=== PATIENT | female | born 1935 | race Caucasian/White ===

== ENCOUNTER 2016-12-31 09:18 | Inpatient (IN) ==
[2016-12-31 10:24] LABS: MANUAL DIFF NEEDED? NO
[2016-12-31 10:29] LABS: BASO% 0.1 % (0.0-0.8); EOS# 0.04 X1000 (0.0-0.7); EOS% 0.5 % (0.0-10.0); HEMATOCRIT 38.9 % (37.0-47.0); HEMOGLOBIN 12.5 g/dL (12.0-16.0); LYMPH# 0.78 X1000 (1.2-3.4); MCH 30.2 PG (27-31); MCHC 32.1 g/dL (33-37); MONO# 0.58 X1000 (0.11-0.59); MONO% 6.7 % (1.7-9.3); MPV 8.7 FL (7.4-10.4); NEUT% 83.7 % (42.2-75.2); PLT 609 X1000 (130-400); RBC 4.14 XMIL (4.2-5.4)
[2016-12-31 10:34] LABS: INR 1.28; PROTIME 13.6 Seconds (9.2-11.7)
[2016-12-31 10:58] LABS: CALCIUM 8.8 mg/dL (8.8-10.2); POTASSIUM 4.5 mmol/L (3.5-5.1); TOTAL BILIRUBIN 0.38 mg/dL (0.20-1.00); TOTAL PROTEIN 6.2 g/dL (6.3-8.3)
--- NOTE | 2016-12-31 11:04 | EKG Report ---
Test Performed on : 12/31/2016 10:09:20 AM Test Reason : PANCREATIC CA Blood Pressure : / mmHG Vent. Rate : 084 BPM Atrial Rate : 083 BPM P-R Int : 000 ms QRS Dur : 080 ms QT Int : 340 ms P-R-T Axes : 000 008 -67 degrees QTc Int : 401 ms Atrial fibrillation. Nonspecific T wave abnormality Abnormal ECG When compared with ECG of 21-NOV-2015 09:11, Vent. rate has decreased BY 46 BPM Incomplete right bundle branch block is no longer present Confirmed by Aleksey CHEN, Du Patel ([id number]) on 01/01/2017 8:42:06 AM
--- NOTE | 2016-12-31 11:46 | Diag Imaging Result Doc PS360 ---
EXAM: CHEST-2 VIEWS HISTORY: PANCREATIC CA TECHNIQUE: PA and lateral chest COMMENT: there are bilateral pleural effusions. This is improved slightly particularly with regard to the left side since 11/25/2015. There is COPD. There are granulomatous calcifications in the right lower lobe and hilum. There is a large hiatal hernia. IMPRESSION: Improved pleural effusions. COPD. Hiatal hernia. Electronically signed by Matthew Castillo 12/31/2016 11:44 AM
--- NOTE | 2016-12-31 13:22 | Diag Imaging Result Doc PS360 ---
EXAM: CT THORAX W/O CONTRAST HISTORY: PANCREATIC CA TECHNIQUE: CT of the chest without contrast with dose reduction (clarity.) COMMENT: There are no previous studies available for comparison. There is some pleural fibrosis in the right apex. There is some bronchiectasis and fibrosis in the right middle lobe medially. There is fibrosis versus platelike atelectasis in the lower right lower lobe. Some small tree-in-bud but type opacities are also present in the posterior right lower lobe inferiorly. There is at least one large calcified granuloma in the right lower lobe. There is pleural thickening and loculated effusion in the right costophrenic sulcus. There is a left pleural effusion as well. There are coronary calcifications. There is a large hiatal hernia. There is ascites. There is a 13 mm right paratracheal node. There are spondylotic changes in the thoracic spine. IMPRESSION: Pleural effusions and ascites as described. Hiatal hernia. Minimal atelectasis and/or fibrosis as described with right middle lobe bronchiectasis. Electronically signed by Matthew Castillo 12/31/2016 1:19 PM
[2016-12-31 14:00] LABS: URINE MICRO REVIEW NEEDED? NO; URINE SOURCE VOIDED
[2016-12-31 14:04] LABS: BILIRUBIN URINE NEGATIVE (NEGATIVE); BLOOD URINE NEGATIVE (NEGATIVE); COLOR YELLOW; GLUCOSE URINE NEGATIVE (NEGATIVE); LEUKOCYTES URINE NEGATIVE (NEGATIVE); NITRITE URINE NEGATIVE (NEGATIVE); PROTEIN URINE NEGATIVE (NEGATIVE); SP GRAVITY URINE 1.007; TURBIDITY URINE CLEAR (CLEAR); UROBILINOGEN URINE NORMAL (NORMAL)
[2016-12-31 14:05] LABS: UR EPITHELIAL CELLS <10 /HPF (<10); URINE BACTERIA 4+ /HPF; URINE RBC <10 /HPF (<10); URINE WBC <10 /HPF (<10)
[2016-12-31] MEDS: LOVENOX SUBQ SCH (22:51)
[2017-01-01] MEDS ORDERED: DUONEB (A & A) INH PRN (03:04)
[2017-01-01] MEDS ORDERED: OXY IR PO PRN (03:04)
[2017-01-01] MEDS: SYNTHROID PO SCH (06:37)
[2017-01-01] MEDS: FERROUS SULFATE PO SCH ×2 (08:04→14:42)
[2017-01-01] MEDS: CARDIZEM CD PO SCH ×2 (08:05→14:41)
[2017-01-01] MEDS: GLUCOTROL XL PO SCH ×2 (08:05→18:39)
[2017-01-01] MEDS: LASIX PO SCH ×2 (08:06→14:42)
[2017-01-01] MEDS: LANOXIN PO SCH ×2 (08:06→14:43)
[2017-01-01] MEDS: PRILOSEC PO SCH ×2 (08:06→21:51)
[2017-01-01] MEDS: VITAMIN B-12 SL SCH ×2 (08:07→14:41)
--- NOTE | 2017-01-01 10:56 | CONSULTATION ---
DATE OF CONSULTATION: 12/31/2016 REASON FOR CONSULTATION: Pancreatic mass. HISTORY OF PRESENT ILLNESS: This is an 81-year-old, white female, who reports a known pancreatic mass for over 4-5 years. She has been followed in [place]. It was felt per patient and her son who was at the bedside that she was not a surgical candidate. The patient has reported recent nausea and vomiting. She has reported weight loss of about 25 pounds over the last 3-4 months. She has a poor appetite. She currently lives alone, but her son helps her who is at the bedside today. She has been following with Dr. Perdue, her primary care physician. Patient denies any visible blood in the stool or black stools. She reports having a colonoscopy by Dr. Desai in [place] over 10 years ago. She has had noted abdominal distention over the last month or so which has become worse. PAST MEDICAL HISTORY: Hypertension, history of atrial fibrillation, COPD, diabetes type 2, renal disease, hypothyroidism. She has had history of pancreatitis. PAST SURGICAL HISTORY: Cataract surgery. Laparoscopic cholecystectomy. ALLERGIES: No known drug allergies. HOME MEDICATIONS: 1. Albuterol as needed. 2. Iron 325 daily. 3. Docusate sodium 200 mg every night. 4. Cardizem CD 240 mg daily. 5. Lanoxin 125 mcg daily. 6. Vitamin B12 2500 mcg sublingual daily. 7. Pravachol 40 mg daily. 8. Oxycodone 5 mg every 3 hours as needed. 9. Prilosec 20 mg twice daily. 10. Levothyroxine 50 mcg daily. 11. Glipizide 5 mg daily. 12. Lasix 80 mg daily. 13. Coumadin 2.5 mg every night. REVIEW OF SYSTEMS: Per HPI. PHYSICAL EXAMINATION: Vital Signs: Temperature 98.2 degrees, pulse 94, respirations 18, blood pressure 126/75. General: Patient is awake and alert, in no acute distress. HEENT: Normocephalic, atraumatic. Pupils equal, round, reactive to light. Sclerae are nonicteric. Cardiovascular: History of atrial fibrillation. Respiratory: Lung sounds essentially clear. Abdomen is distended with ascites noted. Nontender with palpation. Lower extremities with some mild edema noted. LABORATORY RESULTS: Hematology: White count 8.63, hemoglobin 12.5, hematocrit 38.9, MCV 94.0, platelet count 609,000. Coagulation: ProTime 13.6, INR 1.28, PTT 32.0. Chemistry: Sodium 137, potassium 4.5, chloride 98, CO2 of 28. BUN 27, creatinine 1.9, glucose 139, total bilirubin 0.38. AST 15, ALT 18. Alkaline phosphatase 96, total protein 6.2, albumin 3.0. CEA 2.0. Chest CT scan show pleural effusions and ascites, hiatal hernia, minimal atelectasis with right middle lobe bronchiectasis. ASSESSMENT AND PLAN: 1. Pancreatic mass. 2. Ascites. 3. Normal liver function tests. 4. Nausea, vomiting. 5. Weight loss. PLAN: Continue supportive care. Recommend paracentesis for diagnostic and therapeutic purposes. Her bilirubin and liver tests are normal. Do not recommend ERCP at this time. We will continue to follow and further plans will be made as needed. Patient has been seen by Dr. Vinson. Thank you for this consultation. Dictated by COMPA Atkinson for Renny Vinson MD cc: COMPA Potter MD Hugh C. Nabers, MD [facility]ENTERColby
--- NOTE | 2017-01-01 11:21 | Diag Imaging Result Doc PS360 ---
US PARACENTESIS - 01/01/2017 INDICATION: ascites with pancreatic mass COMPARISON: None FINDINGS: The risks and benefits of the procedure were discussed with the patient. All questions were answered. Written and verbal consent was obtained. Ultrasound scanning demonstrated ascites. Overlying skin was prepped and draped in sterile fashion. Local anesthesia was achieved with injection of 10 cc 1% lidocaine. The paracentesis catheter was advanced until the return of ascites fluid. 5 L mildly cloudy yellowish-brown fluid was aspirated. A sample was sent for laboratory analysis. The catheter was withdrawn intact. There were no known complications. IMPRESSION: Technically successful ultrasound-guided paracentesis with no known complications. Electronically signed by Francisco Doyle 01/01/2017 11:18 AM
--- NOTE | 2017-01-01 11:56 | CONSULTATION ---
DATE OF CONSULTATION: 01/01/2017 REASON FOR CONSULT: Pancreatic mass. HISTORY OF PRESENT ILLNESS: This patient, who is a pleasant, female, who sees Dr. Perdue as her primary care, began having increasing abdominal pain and abdominal distention over the past 2 weeks. She apparently has had a known pancreatic mass that has been there for about 4 or 5 years but has not been a surgical candidate. She notified Dr. Perdue of her increasing abdominal pain and abdominal distention. A CT of the abdomen and pelvis was performed which showed a 5 x 5.5 cm hypodense pancreatic head mass that is highly suspicious for malignancy. There was also mild to moderate abdominal ascites, a very small right pleural effusion, and right basilar and pleural parenchymal thickening. She was admitted to the hospital under Dr. Falcon for a paracentesis. A CA-19-9 has been obtained. It is 21. CEA is 2. A CT of the chest has also been performed and it shows a 13 mm right paratracheal node, large hiatal hernia , and pleural effusions with minimal atelectasis in the right middle lobe. EKG was performed and it showed atrial fibrillation with a heart rate of 84 beats per minute. The patient is apparently on Coumadin for her known atrial fibrillation. REVIEW OF SYSTEMS: Negative unless indicated in the HPI. PAST MEDICAL HISTORY: Significant for a known pancreatic mass that she has had for the past 4 to 5 years, renal insufficiency, atrial fibrillation - on Coumadin, COPD, diabetes mellitus type 2. ALLERGIES: No known allergies. HOME MEDICATIONS: Pravachol, oxycodone, Prilosec, Synthroid, glipizide, Lasix, Coumadin, iron, albuterol, and Cardizem. PHYSICAL EXAMINATION: Vital Signs: Stable. General: This is an elderly, female in no acute distress. HEENT: Head is normocephalic, atraumatic. Pupils equal, round , symmetric. Cardiology: S1-S2 audible on auscultation with no heaves, lifts, or thrills. Pulmonary: Breath sounds clear to auscultation. Normal respiratory effort. GI: Abdomen is soft. Positive bowel sounds in all 4 quadrants. It is distended with ascites noted. Extremities: Generalized edema to the bilateral lower extremities. Moves all extremities. She does walk with the assistance of a cane. Neurologic: Alert and orient x3. Psychiatric: Appropriate to the situation. DIAGNOSTIC DATA: CT scan is as above. WBC is 8.63, hemoglobin 12.5, hematocrit 38.9, platelet count is 609,000. Sodium is 137, potassium 4.5, BUN is 27, creatinine is 1.9. CA 19-9 is 21, CEA 2. ASSESSMENT AND PLAN: 1. Pancreatic head mass. She has apparently had a known mass for 4 or [address] of the abdomen and pelvis on 12/18/2016 is not compared with another one. Plan to follow along and plan for PET scan as an outpatient She apparently was not a surgery candidate. Patient's CA- 19-9 is normal, as is her CEA. 2. Ascites, for paracentesis. 3. Abdominal pain with plans as above. 4. Atrial fibrillation. She has been on Coumadin in the past, also Cardizem and digoxin. 5. Deep vein thrombosis prophylaxis, on Lovenox. Dictated by COMPA Story for Jules Levin MD cc: COMPA Story MD Hugh C. Nabers, MD Nick Gillespie, MD MTDD
--- NOTE | 2017-01-01 12:25 | PROGRESS NOTE ---
DATE: 01/01/2017 SUBJECTIVE: The patient states she is feeling better. She had a paracentesis today for therapeutic and diagnostic purposes. 5 L of fluid was removed. She states her abdominal distention is better. We are awaiting lab results from the fluid analysis. OBJECTIVE: Vital Signs: Temperature 97.6 degrees, pulse 75, respirations 16, blood pressure 112/62. General: The patient is awake and alert in no acute distress. Respiratory: Lung sounds essentially clear. Abdomen is softer and less distended. Nontender with palpation. She has a Band-Aid in place to the right quadrant from her paracentesis. LABORATORY RESULTS: Hematology from 12/31/2016: WBC 8.63, hemoglobin 12.5, hematocrit 38.9, MCV 94.0, platelet 609,000. Chemistry: Sodium 137, potassium 4.5, chloride 98, CO2 of 28, BUN 27, creatinine 1.9, glucose 139. Total bilirubin 0.38. AST 15. ALT 18. Alkaline phosphatase 96. CEA 2.0. CEA 19-9 of 21 ASSESSMENT AND PLAN: 1. Pancreatic mass. 2. Ascites. 3. Abdominal distention has improved after paracentesis. 5 L was removed. 4. Recent weight loss and appetite loss. PLAN: We will await diagnostic results from paracentesis. Dr. Levin has seen the patient. Further plans will be made according to findings. Patient voices understanding. Family is at the bedside. Dictated by COMPA Atkinson for Renny Vinson MD cc: COMPA Potter MD Hugh C. Nabers, MD
[2017-01-01 14:27] LABS: TOTAL PROT BODY FLUID 3.6 g/dL
[2017-01-01] MEDS: D5 1/2 NS + KCL 20 MEQ 1,000 ML IV SCH (14:41)
[2017-01-01 15:03] LABS: DIFF NEEDED? YES; POLYS 21 %; WBC BF 510 /cumm
[2017-01-01 15:04] LABS: MONOS 79 %
[2017-01-01] MEDS: COLACE PO SCH (21:51)
[2017-01-01] MEDS: PRAVACHOL PO SCH (21:51)
[2017-01-01] MEDS: LOVENOX SUBQ SCH (21:58)
[2017-01-02] MEDS: D5 1/2 NS + KCL 20 MEQ 1,000 ML IV SCH ×3 (04:58→22:10)
[2017-01-02 05:43] LABS: MANUAL DIFF NEEDED? NO
[2017-01-02 05:58] LABS: BASO% 0.1 % (0.0-0.8); EOS# 0.13 X1000 (0.0-0.7); EOS% 1.7 % (0.0-10.0); IMM GRAN# 0.02 X1000 (0.0-0.04); IMM GRAN% 0.3 % (0.0-0.5); LYMPH# 0.72 X1000 (1.2-3.4); LYMPH% 9.4 % (20.5-51.1); MCH 29.6 PG (27-31); MCHC 31.4 g/dL (33-37); MCV 94.3 FL (81-99); MONO% 10.5 % (1.7-9.3); MPV 9.2 FL (7.4-10.4); PLT 429 X1000 (130-400); RBC 3.71 XMIL (4.2-5.4)
[2017-01-02 06:10] LABS: CALCIUM 7.7 mg/dL (8.8-10.2); POTASSIUM 4.4 mmol/L (3.5-5.1)
[2017-01-02] MEDS: SYNTHROID PO SCH (06:23)
[2017-01-02] MEDS: VITAMIN B-12 SL SCH (09:41)
[2017-01-02] MEDS: LASIX PO SCH (09:41)
[2017-01-02] MEDS: FERROUS SULFATE PO SCH (09:41)
[2017-01-02] MEDS: CARDIZEM CD PO SCH (09:41)
[2017-01-02] MEDS: PRILOSEC PO SCH ×2 (09:41→22:11)
[2017-01-02] MEDS: GLUCOTROL XL PO SCH (09:41)
[2017-01-02] MEDS: LANOXIN PO SCH (09:42)
--- NOTE | 2017-01-02 14:17 | PROGRESS NOTE ---
DATE: 01/02/2017 SUBJECTIVE: Patient states she is feeling pretty good. She did report some shortness of breath when walking to the bathroom. No reported abdominal pain. She did report some heartburn during the night. She reported having 2 normal bowel movements today. No complaints of chest pain or palpitations. OBJECTIVE: Vital Signs: Temperature 97.7 degrees, pulse 69, respirations 18, blood pressure 122/60. General: Patient is awake and alert, no acute distress. HEENT: Normocephalic, atraumatic. Pupils equal, round, reactive to light. Sclerae nonicteric. Cardiovascular: Regular rate and rhythm. S1, S2. Respiratory: Lung sounds essentially clear bilaterally. Abdomen: With some mild ascites but better after paracentesis. She had 5 L removed yesterday. Mild tenderness. Positive bowel sounds. Neurological: She is awake, alert, and oriented to person, place, and time. DIAGNOSTIC RESULTS: Laboratory: Hematology: White count 7.65, hemoglobin 11, hematocrit 35.5, MCV 94.3, platelets 429,000. Chemistry: Sodium 139, potassium 4.4, chloride 101, CO2 30, BUN 21, creatinine 1.6, glucose 153. Diagnostic results of ascitic fluid showed SAAG of 1.0. We are awaiting cytology. ASSESSMENT AND PLAN: 1. Pancreatic mass. 2. Ascites. 3. Abdominal pain. 4. Recent weight loss and appetite loss. PLAN: Continue supportive care. Continue symptomatic treatment. She had 5 L of fluid removed yesterday from her paracentesis. We are awaiting cytology report. Continue to follow with Dr. Falcon and Dr. Levin. GI will be available as needed. Dictated by COMPA Atkinson for Renny Vinson MD cc: COMPA Potter MD Hugh C. Nabers, MD
[2017-01-02] MEDS ORDERED: GOLYTELY PO ONE ×2 (16:30→17:00)
[2017-01-02] MEDS: PRAVACHOL PO SCH (22:11)
[2017-01-02] MEDS: COLACE PO SCH (22:11)
[2017-01-03] MEDS: D5 1/2 NS + KCL 20 MEQ 1,000 ML IV SCH ×3 (05:57→22:10)
[2017-01-03 06:11] LABS: MANUAL DIFF NEEDED? NO
[2017-01-03 06:20] LABS: BASO% 0.1 % (0.0-0.8); EOS# 0.15 X1000 (0.0-0.7); EOS% 2.2 % (0.0-10.0); HEMATOCRIT 33.2 % (37.0-47.0); HEMOGLOBIN 10.6 g/dL (12.0-16.0); IMM GRAN# 0.03 X1000 (0.0-0.04); IMM GRAN% 0.4 % (0.0-0.5); LYMPH# 0.74 X1000 (1.2-3.4); LYMPH% 10.8 % (20.5-51.1); MCH 29.9 PG (27-31); MCHC 31.9 g/dL (33-37); MCV 93.5 FL (81-99); MONO# 0.67 X1000 (0.11-0.59); MONO% 9.8 % (1.7-9.3); MPV 9.3 FL (7.4-10.4); NEUT% 76.7 % (42.2-75.2); PLT 401 X1000 (130-400); RBC 3.55 XMIL (4.2-5.4)
[2017-01-03 06:35] LABS: ALBUMIN 2.1 g/dL (3.5-5.0); CALCIUM 7.3 mg/dL (8.8-10.2); POTASSIUM 4.6 mmol/L (3.5-5.1)
[2017-01-03] MEDS: SYNTHROID PO SCH (07:48)
[2017-01-03] MEDS: FERROUS SULFATE PO SCH (09:57)
[2017-01-03] MEDS ORDERED: DIPRIVAN 1% 500 MG/50 ML BOTTLE ONE (12:03)
[2017-01-03] MEDS ORDERED: EPINEPHRINE SYRINGE ONE ×2 (14:06→14:29)
[2017-01-03] MEDS ORDERED: XYLOCAINE-MPF 2% ONE (14:08)
[2017-01-03] MEDS: PRILOSEC PO SCH ×2 (14:21→22:10)
[2017-01-03] MEDS: LANOXIN PO SCH (14:22)
[2017-01-03] MEDS: VITAMIN B-12 SL SCH (14:22)
[2017-01-03] MEDS: CARDIZEM CD PO SCH (14:22)
[2017-01-03] MEDS: GLUCOTROL XL PO SCH (14:22)
[2017-01-03] MEDS: LASIX PO SCH (14:30)
--- NOTE | 2017-01-03 14:47 | OPERATIVE NOTE ---
PROCEDURE DATE: 01/03/2017 PROCEDURE: 1. Esophagogastroduodenoscopy. 2. Colonoscopy and polypectomy. MEDICATION USED: MAC as per Anesthesia. SCOPED USED: Olympus GIF HQ-190 and CF HQ-190. PREOPERATIVE DIAGNOSIS: Malignant ascites unknown primary. POSTOPERATIVE DIAGNOSES: 1. Hiatal hernia. 2. Colon polyps. 3. Diverticulosis. 4. No malignancy found. HISTORY: This is an 81-year-old, white female admitted to hospital with me once ascites and cytology on paracentesis showed evidence adenocarcinoma. EGD and colonoscopy was done to check for primary. DESCRIPTION OF PROCEDURE: Informed consent was obtained from the patient. The procedure, risks, benefits, alternatives were explained in layman's terms. She understood. All the pertinent questions were answered. Patient was brought to the endoscopy unit and was premedicated as per Anesthesia. After adequate sedation, while she was lying in left lateral position, the gastroscope was introduced into the posterior pharynx and advanced under direct vision into the esophagus. Esophagus in the upper and middle part was normal. Distal esophagus showed a 5 cm long hiatal hernia. The GE junction was noted at about 35 cm and the diaphragmatic hiatus was about 40 cm from incisors. I did not see any webs, rings, varices. The scope was then passed through the esophagus into the stomach. Stomach was examined both in straight and retroflexed view, which revealed no pathology. Scope was then passed through the normal pylorus, into the duodenal bulb, and then 2nd part duodenum, which did show pressure from outside in the duodenal bulb area, but no ulcer, AVM, or masses were seen. The scope was then removed. The patient was repositioned for colonoscopy. Digital rectal exam was performed, which revealed external hemorrhoid at about 7 o'clock position in lithotomy. The hemorrhoid appeared to be grade 4 and appeared to be thrombosed. The scope was then gently introduced into the rectum and advanced under direct vision through the parts of colon, all the way up to the cecum. The cecum was identified by ileocecal valve and appendiceal orifice. The scope was withdrawn paying careful attention to details. Preparation was fair. There was some stool material present in the cecum and descending colon, which was cleansed by irrigation and suction. In the ascending colon I saw 4 polyps. These ranged from 5 mm to about a cm in size. These polyps were removed by snare and cautery. One of the polyps had some arterial bleed after polypectomy, which was treated by injecting 1:10,000 epinephrine in aliquots of 0.5 mL using a sclerotherapy needle. The bleeding reduced. At that point, I went ahead and cauterized and placed an Endoclip without difficulty and bleeding stopped. There were a few polyps noted in the left side of the colon also, which were removed by snare and cautery without difficulty. Scattered in the sigmoid colon there were some diverticula. These diverticula did not have any evidence of diverticular bleeding or diverticulitis. Otherwise, the colon all the way to the rectum did not reveal any pathology. At the rectosigmoid junction, there appeared to be narrowing most likely from external compression from the malignant seeding of the pelvic floor. Rectal exam both in straight and retroflexed view revealed no pathology. Scope was then removed. Patient tolerated procedure with no complications noted. Patient was then transferred to the recovery area in a stable condition. IMPRESSION: 1. Hiatal hernia sliding-type 5 cm long. 2. Colon polyps polypectomy performed. 3. Diverticulosis colon. RECOMMENDATION: Advised to resume diet and further workup will be needed as far as the primary goes and further plans made according to the oncologist suggestions. cc: MD Mickey Phillips MD Naveen T. Lobo, MD MTDD
[2017-01-03] MEDS: COLACE PO SCH (22:10)
[2017-01-03] MEDS: PRAVACHOL PO SCH (22:10)
[2017-01-04] MEDS: D5 1/2 NS + KCL 20 MEQ 1,000 ML IV SCH ×3 (05:05→21:17)
[2017-01-04 05:41] LABS: MANUAL DIFF NEEDED? NO
[2017-01-04 05:52] LABS: BASO% 0.2 % (0.0-0.8); EOS# 0.17 X1000 (0.0-0.7); EOS% 1.7 % (0.0-10.0); HEMATOCRIT 33.9 % (37.0-47.0); HEMOGLOBIN 10.9 g/dL (12.0-16.0); IMM GRAN# 0.03 X1000 (0.0-0.04); IMM GRAN% 0.3 % (0.0-0.5); LYMPH# 0.61 X1000 (1.2-3.4); LYMPH% 6.2 % (20.5-51.1); MCH 30.2 PG (27-31); MCHC 32.2 g/dL (33-37); MCV 93.9 FL (81-99); MONO# 0.94 X1000 (0.11-0.59); MONO% 9.5 % (1.7-9.3); MPV 9.4 FL (7.4-10.4); NEUT% 82.1 % (42.2-75.2); PLT 387 X1000 (130-400); RBC 3.61 XMIL (4.2-5.4)
[2017-01-04] MEDS: SYNTHROID PO SCH (06:04)
[2017-01-04 06:11] LABS: INR 1.1; PROTIME 11.6 Seconds (9.2-11.7); PTT 30.9 Seconds (22.0-36.0)
[2017-01-04 06:30] LABS: CALCIUM 7.5 mg/dL (8.8-10.2); POTASSIUM 4.6 mmol/L (3.5-5.1)
[2017-01-04] MEDS: GLUCOTROL XL PO SCH (09:46)
[2017-01-04] MEDS: CARDIZEM CD PO SCH (09:46)
[2017-01-04] MEDS: FERROUS SULFATE PO SCH (09:46)
[2017-01-04] MEDS: VITAMIN B-12 SL SCH (09:46)
[2017-01-04] MEDS: PRILOSEC PO SCH ×2 (09:47→21:12)
[2017-01-04] MEDS: LANOXIN PO SCH (09:47)
[2017-01-04] MEDS: LASIX PO SCH (09:47)
--- NOTE | 2017-01-04 11:03 | Diag Imaging Result Doc PS360 ---
EXAM: BIOPSY abdomen/retroperitoneum INDICATION: pancreatic mass COMPARISON: None. FINDINGS: Risks, benefits, and alternatives were discussed with the patient and informed consent was obtained. Patient was placed in a prone position and was prepped and draped in sterile fashion. Local anesthesia was achieved with 1% lidocaine solution. Using CT guidance, an 18-gauge coaxial biopsy needle system was used to obtain five 1.3 cm core biopsies from the known pancreatic head mass using an anterior approach. There were no known complications. A postprocedural scan showed no discrete gross hemorrhage. IMPRESSION: Technically successful CT-guided pancreatic head biopsy. Electronically signed by Francisco Doyle 01/04/2017 11:01 AM
[2017-01-04] MEDS: PRAVACHOL PO SCH (21:12)
[2017-01-04] MEDS: COLACE PO SCH (21:12)
[2017-01-04] MEDS: LOVENOX SUBQ SCH (21:14)
[2017-01-05] MEDS: SYNTHROID PO SCH (06:28)
[2017-01-05] MEDS: D5 1/2 NS + KCL 20 MEQ 1,000 ML IV SCH ×2 (07:56→17:52)
[2017-01-05] MEDS: VITAMIN B-12 SL SCH (10:15)
[2017-01-05] MEDS: LANOXIN PO SCH (10:15)
[2017-01-05] MEDS: PRILOSEC PO SCH ×2 (10:15→21:41)
[2017-01-05] MEDS: FERROUS SULFATE PO SCH (10:15)
[2017-01-05] MEDS: LASIX PO SCH (10:15)
[2017-01-05] MEDS: CARDIZEM CD PO SCH (10:15)
[2017-01-05] MEDS: GLUCOTROL XL PO SCH (10:15)
[2017-01-05] MEDS: PRAVACHOL PO SCH (21:41)
[2017-01-05] MEDS: LOVENOX SUBQ SCH (21:41)
[2017-01-05] MEDS: COLACE PO SCH (21:41)
[2017-01-06] MEDS: D5 1/2 NS + KCL 20 MEQ 1,000 ML IV SCH ×2 (03:50→16:59)
[2017-01-06] MEDS: SYNTHROID PO SCH (06:14)
[2017-01-06] MEDS: LANOXIN PO SCH (09:05)
[2017-01-06] MEDS: FERROUS SULFATE PO SCH (09:05)
[2017-01-06] MEDS: LASIX PO SCH (09:05)
[2017-01-06] MEDS: PRILOSEC PO SCH ×2 (09:06→21:44)
[2017-01-06] MEDS: VITAMIN B-12 SL SCH (09:06)
[2017-01-06] MEDS: CARDIZEM CD PO SCH (09:06)
[2017-01-06] MEDS: GLUCOTROL XL PO SCH (09:06)
[2017-01-06] MEDS ORDERED: COUMADIN PO SCH (21:00)
[2017-01-06] MEDS: COLACE PO SCH (21:44)
[2017-01-06] MEDS: PRAVACHOL PO SCH (21:45)
[2017-01-06] MEDS: LOVENOX SUBQ SCH (21:46)
[2017-01-07] MEDS: SYNTHROID PO SCH (06:15)
[2017-01-07] MEDS: D5 1/2 NS + KCL 20 MEQ 1,000 ML IV SCH ×4 (06:16→22:40)
[2017-01-07] MEDS: FERROUS SULFATE PO SCH (08:27)
[2017-01-07] MEDS: VITAMIN B-12 SL SCH (08:28)
[2017-01-07] MEDS: PRILOSEC PO SCH ×2 (08:28→21:57)
[2017-01-07] MEDS: LASIX PO SCH (08:29)
[2017-01-07] MEDS: GLUCOTROL XL PO SCH (08:29)
[2017-01-07] MEDS: LANOXIN PO SCH (08:34)
[2017-01-07] MEDS: CARDIZEM CD PO SCH (08:34)
[2017-01-07] MEDS ORDERED: NS 250 ML ONE (08:57)
[2017-01-07] MEDS ORDERED: MARCAINE 0.25% PF/EPI 1:200,000 ONE (08:57)
[2017-01-07] MEDS ORDERED: HEPARIN ONE (08:57)
[2017-01-07] MEDS ORDERED: KEFZOL 1 GM/D5W 1 GM/50 ML IVPB ONE (09:09)
--- NOTE | 2017-01-07 10:29 | Diag Imaging Result Doc PS360 ---
CHEST-PORTABLE - 01/07/2017 INDICATION: Port right TECHNIQUE: COMPARISON: 12/31/2016 FINDINGS: There is a new right chest port in good position with the catheter tip in the SVC. Stable mild cardiomegaly and pulmonary vascular congestion. Stable small right basilar infiltrate. Stable small right pleural effusion. No pneumothorax. Stable calcified granulomas in the right lung and hilum. IMPRESSION: No evidence of complication. Electronically signed by Saul Stewart 01/07/2017 10:27 AM
[2017-01-07] MEDS ORDERED: DIPRIVAN 1% ONE (11:47)
[2017-01-07] MEDS ORDERED: LR 1,000 ML ONE (12:01)
[2017-01-07] MEDS ORDERED: EPHEDRINE ONE (12:01)
[2017-01-07] MEDS ORDERED: XYLOCAINE-MPF 2% ONE (12:01)
--- NOTE | 2017-01-07 12:32 | OPERATIVE NOTE ---
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 PROCEDURE: Right subclavian PowerPort for palliative chemotherapy. SURGEON: Mickey Falcon MD DESCRIPTION OF PROCEDURE: The patient was brought to the operating room. After satisfactory induction of IV and LMA anesthesia, her right neck and chest were prepped and draped in the appropriate manner. Midclavicular line, 1 fingerbreadth below the clavicle, an area was infiltrated with Marcaine with epinephrine and a transverse incision was made down to the clavipectoral fascia. Through the base of this incision, a subcutaneous pocket was developed inferiorly. Likewise, through the base of this incision, the subclavian vein was cannulated. A guidewire was introduced into the right atrial area of the heart. Fluoroscopy revealed good positioning with no pneumothorax. A 9-Burkinan introducer was used to dilate the vessel and a system trimmed to 19 cm was threaded down the superior vena cava right atrial junction. It was flushed with heparinized saline. The reservoir was buried in the pocket and anchored with 3-0 silk. The subcutaneous was closed with 3-0 Vicryl after flushing the catheter, and the skin itself with 4-0 Vicryl subcuticular. Steri-Strips, Telfa, and OpSite were applied. The patient was subsequently awakened and extubated in the operating room and transferred to recovery. ESTIMATED BLOOD LOSS: Around 10 mL. cc: Miceky Falcon MD
[2017-01-07] MEDS: COLACE PO SCH (21:57)
[2017-01-07] MEDS: PRAVACHOL PO SCH (21:57)
[2017-01-07] MEDS: PERIDEX MT SCH (22:40)
[2017-01-08] MEDS: D5 1/2 NS + KCL 20 MEQ 1,000 ML IV SCH (06:14)
[2017-01-08] MEDS: SYNTHROID PO SCH (06:14)
--- NOTE | 2017-01-08 09:40 | Diag Imaging Result Doc PS360 ---
US PARACENTESIS - 01/08/2017 INDICATION: Physician order COMPARISON: 01/01/2017 FINDINGS: The risks and benefits of the procedure were discussed with the patient. All questions were answered. Written and verbal consent was obtained. Ultrasound scanning demonstrated ascites. Overlying skin was prepped and draped in sterile fashion. Local anesthesia was achieved with injection of 10 cc 1% lidocaine. The paracentesis catheter was advanced until the return of ascites fluid. 3 L of straw-colored serous fluid was aspirated. The catheter was withdrawn intact. There were no known complications. IMPRESSION: Technically successful ultrasound-guided paracentesis with no known complications. Electronically signed by Francisco Doyle 01/08/2017 9:37 AM
[2017-01-08] MEDS: VITAMIN B-12 SL SCH (10:38)
[2017-01-08] MEDS: PERIDEX MT SCH (10:38)
[2017-01-08] MEDS: FERROUS SULFATE PO SCH (10:38)
[2017-01-08] MEDS: GLUCOTROL XL PO SCH (10:39)
[2017-01-08] MEDS: PRILOSEC PO SCH (10:39)
[2017-01-08] MEDS: CARDIZEM CD PO SCH (10:39)
[2017-01-08] MEDS: LANOXIN PO SCH (10:39)
[2017-01-08] MEDS: LASIX PO SCH (10:39)
[2017-01-08 11:29] VITALS: BP 133/69
--- NOTE | 2017-01-13 15:15 | HISTORY AND PHYSICAL ---
DIAGNOSIS: Pancreatic mass with ascites. PLAN: Admission. GI evaluation. HISTORY OF PRESENT ILLNESS: The patient is an 81-year-old white female referred by Dr. Fernando Perdue at [facility] for evaluation of an enlarging mass in the head of her pancreas. Outpatient CT reveals a fairly large mass in the head of the pancreas as well as ascites. She has recently been having more pain and weight loss. Apparently the mass has been known about for the last 2-3 years but has been asymptomatic until recently. PAST HISTORY: She is multiparous. she has had no surgeries. PHYSICAL EXAMINATION: GENERAL: Physical exam reveals a elderly white female with obvious abdominal distention. HEAD/NECK: She is normocephalic, atraumatic. Pupils equal and reactive. There is no cervical or supraclavicular adenopathy. CHEST: Clear. BREASTS AND AXILLARY: Negative. ABDOMEN: Is protuberant with hypoactive bowel sounds and a positive fluid wave. : Negative. NEUROLOGICALLY: Intact. IMPRESSION: Probable pancreatic malignancy with ascites. PLAN: Admission. GI consultation. Consultation with Dr. Vinson and Dr. Levin and radiology for paracentesis. cc: Mickey Falcon MD
--- NOTE | 2017-01-14 07:13 | DISCHARGE SUMMARY ---
ADMISSION DATE: 12/31/2016 DISCHARGE DATE: 01/08/2017 DIAGNOSES: 1. Mass in the head of the pancreas. 2. Malignant ascites. PROCEDURES PERFORMED: 1. Paracentesis times 2. 2. PowerPort for chemotherapy. 3. Esophagogastroduodenoscopy. 4. Colonoscopy. 5. CT-directed pancreatic biopsy. The patient is an 81-year-old white female, referred by Dr. Fernando Perdue at [facility] for evaluation of an enlarging mass in the head of the pancreas, as well as ascites. On admission Dr. Vinson was consulted. Her liver functions were seen to be normal Her CEA was 2. Her CA-19-9 was normal. Her CA-125 was 255 with upper limit of normal being less than 40. 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 The patient's CT scan reveals small atrophic ovaries on both sides. Dr. Levin was consulted. A port was placed for initiation of palliative chemotherapy. Dr. Vinson performed EGD and colonoscopy, that revealed only benign polyps and diverticulosis. CT- directed biopsy of the pancreatic head lesion revealed only normal pancreatic tissue. The patient did improve somewhat during her hospitalization with her paracenteses. Five L was taken on the first tap, 3 L on the second. She is subsequently allowed home to initiate palliative chemotherapy as an outpatient. There are no plans for major surgery at this time. cc: Mickey Falcon MD
== END 2017-01-08 11:52 | disposition home health service (06) ==
LOC: DIRADM → OBSVTOIN 09:18 → 4N 09:42
PROVIDERS: ADMIT Surgery; ATTEND Surgery

== ENCOUNTER 2018-12-13 13:39 | Inpatient (IN) ==
[2018-12-13] MEDS ORDERED: NS 1,000 ML IV ONE ×2 (13:56→16:53)
--- NOTE | 2018-12-13 14:05 | PROVIDER DOCUMENTATION ---
HPI-General Adult - General Chief Complaint: Weakness Stated Complaint: WEAKNESS,HAD OVARIAN CANCER IN PASS Time Seen by Provider: 12/13/18 13:54 Source: patient Allergies/Adverse Reactions: Patient Allergies Allergy/AdvReac Type Severity Reaction Status Date / Time No Known Allergies Allergy Verified 12/31/16 12:47 Home Medications: Home Medication List Medication Instructions Recorded Confirmed Last Taken Type Furosemide [Lasix] 80 mg PO DAILY 12/28/14 12/31/16 12/30/16 History Glipizide [Glipizide ER] 5 mg PO DAILY 12/28/14 12/31/16 12/31/16 History Levothyroxine Sodium 50 mcg PO DAILY 12/28/14 12/31/16 12/31/16 History Omeprazole [Prilosec] 20 mg PO BID 12/28/14 12/31/16 12/30/16 History PRAVAstatin [Pravachol] 40 mg PO DAILY 12/28/14 12/31/16 11/13/15 12:00 History Albuterol 2.5MG/Ipratrop 0.5MG 3 ml INH Q4H PRN PRN #10 neb 11/24/15 12/31/16 Unknown Rx [Duoneb (A & A)] Cyanocobalamin S.l. [Vitamin B-12] 2,500 microgm SL DAILY #30 tablet 11/24/15 12/31/16 Unknown Rx Digoxin [Lanoxin] 125 microgm PO DAILY #30 tablet 11/24/15 12/31/16 12/31/16 Rx Diltiazem C.d. [Cardizem Cd] 240 mg PO DAILY #30 capsule 11/24/15 12/31/16 12/31/16 Rx Docusate Sodium [Colace] 200 mg PO QHS #30 capsule 11/24/15 12/31/16 12/29/16 Rx Ferrous Sulfate 325 mg PO WBREAKFAST #30 tablet 11/24/15 12/31/16 12/27/16 Rx Oxycodone I.r. [Oxy Ir] 5 mg PO Q3H PRN PRN #30 capsule 11/24/15 12/31/16 Unknown Rx Hydrocodone/Acetaminophen [Phelps 1 each PO Q4H PRN PRN #20 tablet 01/08/17 Unknown Rx 10-325 Tablet] Ondansetron HCl [Zofran] 4 mg PO Q4H PRN PRN #10 tablet 01/08/17 Unknown Rx Warfarin Sodium [Coumadin] 2 mg PO DAILY #100 tablet 01/08/17 Unknown Rx - History of Present Illness -Gen Adult Nature of Presenting Problems: Pt.i s 82 yof that presents with c/o weakness. Pt. denies any fever and states she is slightly SOB. She denies any pain. Pt. reports she has been feeling this way for one week. She also reports she has a form of ovarian CA. She sees Dr. Levin. Location of Pain/Injury: reports: none. denies: head, face, mouth, neck, chest, upper extremity, hand(s), abdomen, back, pelvis, genitalia, lower extremity, feet, upper body, lower body, generalized, other Pain Radiation: reports: no radiation. denies: arm(s), back, buttocks, chest, epigastric, feet, groin, jaw, flank (L), legs (lower), LLQ, LUQ, neck, periumbilical, flank (R), RLQ, RUQ, shoulder(s), scapula, scrotal, sternal notch, suprapubic, legs (upper), urethral, vaginal, other Quality of Pain: reports: none. denies: aching, burning, pressure, sharp, throbbing, tightness Severity: reports: moderate. denies: mild, severe Onset/Duration: reports: gradual, 1 week ago Timing: reports: still present. denies: improving, gone now, intermittent, constant, getting worse Context/Activities at Onset: reports: none. denies: light activity, moderate activity, vigorous activity, recent emotional stress, recent physical stress, recent trauma history, possible bad food, cold exposure, eating, out of country travel, rest, sleep, sexual activity, other Modifying Factors: improves with: nothing Associated Symptoms: reports: shortness of breath, weakness. denies: denies s ymptoms, anxiety, arm pain, back/neck pain, chest pain, constipation, cough, diaphoresis, diarrhea, dizziness, EENT symptoms, fatigue, fever/chills, genitourinary problems, headaches, heartburn, joint pain, loss of appetite, malaise, muscle aches, sinus congestion/drainage, nausea, rash, seizure, se nsory/motor loss, pain with inspiration, swelling/mass in abdomen, syncope, vomiting, trouble walking, other Similar Symptoms Previously?: Yes Recently seen or treated by another doctor?: No Review of Systems - Adult - REVIEW OF SYSTEMS - ADULT Constitutional: reports: no symptoms reported Eyes: reports: no symptoms reported Ears, Nose, Mouth & Throat: reports: no symptoms reported Cardiovascular: reports: no symptoms reported Respiratory: reports: see HPI, shortness of breath Gastrointestinal: reports: no symptoms reported Genitourinary: reports: no symptoms reported Musculoskeletal: reports: see HPI, muscle weakness. denies: bone pain, joint swelling, muscle aches Integumentary: reports: no symptoms reported Neurological: reports: no symptoms reported Past History - Adult - PAST MEDICAL HISTORY-ADULT Review of Records: reports: Old Records Reviewed, Nursing Assessment Review, Medications Reviewed, Social history reviewed & non-contributory. Major Childhood Illnesses: reports: denies history Cardiovascular: reports: A-Fib, HTN, [place] Respiratory: reports: COPD Endocrine/Immune: reports: Diabetes Other Conditions: reports: denies history - PRIOR SURGERIES/PROCEDURES Surgical/Procedure History: reports: cholecystectomy - PRIOR HOSPITALIZATIONS Prior Hospitalizations: reports: none - IMMUNIZATION STATUS Childhood Immunizations: See Nurse Assessment Flu Vaccine: See Nurse Assessment - FAMILY HISTORY Family History: reviewed, not pertinent - SOCIAL HISTORY Smoking: denies Physical Exam-General - PHYSICAL EXAM-ADULT Initial Vital Signs Reviewed: Yes - CONSTITUTIONAL General Appearance: alert, mild distress, thin. negative: anxious, slow to respond, obtunded, combative - EYES Eyes: PERRL/EOMI, pink conjunctivae. negative: conjuctival exudate, scleral icterus, subconjunctival hemorrhage - HEAD, EARS, NOSE, MOUTH & THROAT HENMT: normocephalic/atraumatic, moist mucous membranes. negative: angioedema, frontal tenderness, maxillary tenderness - NECK Neck: non-tender, full range of motion, supple, normal inspection. negative: lymphadenopathy, trachial deviation, thyromegaly - RESPIRATORY Respiratory: lungs clear, normal breath sounds. negative: crackles, rales, rhonchi, stridor, wheezing - CARDIOVASCULAR Cardiovascular: no edema, no JVD, tachycardia, irregularly irregular. negative: extra beats, friction rub - GASTROINTESTINAL (ABDOMEN) Abdominal Exam: normal bowel sounds, non tender, soft. negative: rigid, hernia, mass - LYMPHATIC Lymphatic: no adenopathy. negative: axilla node tender, cervical node tenderness - MUSCULOSKELETAL Back Exam: normal inspection, no CVA tenderness, no vertebral tenderness. negative: ecchymosis, swelling, vertebral tenderness Extremity: normal range of motion. negative: deformity, erythema, inflammation, swelling, tenderness Peripheral Pulses: radial (R): 2+, radial (L): 2+ - SKIN Integumentary: normal turgor, warm/dry, pallor. negative: cyanosis, erythema, jaundice, mottled, swelling, tenderness - NEUROLOGIC Neurologic: grossly normal, no motor/sensory deficits. negative: aphasia, facial droop, focal weakness, motor weakness, sensory deficit - PSYCHIATRIC Psych/Mental Status: normal mood/affect, normal thought content, normal thought process, oriented x 3. negative: anxious, paranoid, tearful Progress - PLAN OF CARE/RESULTS Progress/Plan/Lab Results: Vital Signs - 8 hr 12/13/18 13:43 Temperature 97.8 F Pulse Rate 134 H Respiratory Rate 18 Blood Pressure 100/62 O2 Sat by Pulse Oximetry 96 Orders Category Date Time Status Saline Loc NOW Care 12/13/18 13:55 Active CHEST-PORTABLE [RAD] Stat Exams 12/13/18 13:55 Ordered CBC WITH ELECTRONIC DIFF [HEME] Stat Lab 12/13/18 13:55 Uncollected CK PROFILE [SP CHEM] Stat Lab 12/13/18 13:55 Uncollected COMPREHENSIVE METABOLIC PANEL [CHEM] Stat Lab 12/13/18 13:55 Uncollected PRO B-NATRIURETIC PEPTIDE Stat Lab 12/13/18 13:55 Ordered TROPONIN T Stat Lab 12/13/18 13:55 Uncollected URINALYSIS W/POSS RFLX CULT [URINALYSIS] Stat Lab 12/13/18 13:55 Uncollected 0.9% Sodium Chloride Inj [Ns] 1,000 ml Med 12/13/18 13:56 Active IV 125 mls/hr EKG [EKG] Stat Ther 12/13/18 13:53 Ordered Discussed results and plan of care with patient. Patient agrees with plan and verbalizes understanding. Result Diagrams: 12/13/18 14:35 12/13/18 14:35 - EKG 1 Time of EKG reading by physician:: 13:52 EKG Read and Signed by:: Eleuterio Jordan EKG Interpretation (*Must complete 3 of following elements*): Abnormal Rate: 138 Rhythm: A-fib - XRAY 1 XRAY Study: Chest ([facility] [address] , [address], [place] [id number] Department of Imaging Patient: CRISTOBAL CLEMENTE Date: 12/13/18MR#: [id number] : 1935DM Status: REG [facility]#: [id number] Age/Sex: 82/FRoom/Bed: Loc: ED Ordering Physician: José Miguel Carmichael Family Physician: Spencer Perdue MD Reason for Procedure: weakness Signed EXAM: CHEST-PORTABLE HISTORY: weakness TECHNIQUE: Chest single view COMPARISON: 01/07/2017 FINDINGS: There are bilateral dense infiltrates as well as basilar atelectasis. There is a small to moderate-sized left pleural effusion with a small right pleural effusion. The heart is mildly enlarged. No change in the right sided portacatheter. No pneumothorax. IMPRESSION: Bilateral infiltrates and atelectasis with small pleural effusions Electronically signed by Grant Murray 12/13/2018 2:31 PM 12/13/18 1431 Interpreting Physician: Grant Murray MD Dictated Date/Time: 12/13/18 1430 cc: José Miguel Carmichael; Spencer Perdue MD) XRAY Interpretation: See note - CONSULTS/PCP/HOSPITALIST Notification #1 *Consult/PCP/Hospitalist*: Sue Sullivan Time Discussed: 15:46 Reason/Comments: Admission Consult Disposition: Will see in ED, Admit Departure - Departure Date of Disposition Decision: 12/13/18 Time of Disposition Decision: 14:43 DIAGNOSIS: Chronic atrial fibrillation, Leukopenia due to antineoplastic chemotherapy, Renal insufficiency, Hyperglycemia, Elevated serum lactate dehydrogenase Pneumonia Qualifiers: Pneumonia type: due to unspecified organism Laterality: bilateral Lung location: unspecified part of lung Qualified Code(s): J18.9 - Pneumonia, unspecified organism Anemia Qualifiers: Anemia type: unspecified type Qualified Code(s): D64.9 - Anemia, unspecified Disposition: ADMITTED INPATIENT 09 Certified Medical Emergency: Emergent Condition: Stable Referrals and Follow-Ups: Spencer Perdue MD [Primary Care Provider] - - Critical Care Note This patient required my direct & personal management of CC.: Yes Total Time (mins): 35 Critical Care Statement: This patient required my direct personal management to treat or rule out processes, the absence of which, could potentiallly result in sudden, clinically significant life or limb threatening deterioration. Attestation - Physician/ BONIFACIO Attestation Patient care was provided by Advanced Practice Provider:: Yes Advanced Practice Provider:: José Miguel Carmichael Advanced Practice Provider documentation review:: The Mid-level provider documentation, treatment plan and medical decision making was reviewed by the physician who agrees with all treatment and medical decision making by the MLP. The physician spent face to face time with patient:: No Advanced Practice Provider documentation review:: Supervising physician onsite and consulted in the evaluation and care of this patient. The physician did not have a face to face encounter with the patient.
[2018-12-13] MEDS ORDERED: CARDIZEM IV ONE (14:13)
--- NOTE | 2018-12-13 14:33 | Diag Imaging Result Doc PS360 ---
EXAM: CHEST-PORTABLE HISTORY: weakness TECHNIQUE: Chest single view COMPARISON: 01/07/2017 FINDINGS: There are bilateral dense infiltrates as well as basilar atelectasis. There is a small to moderate-sized left pleural effusion with a small right pleural effusion. The heart is mildly enlarged. No change in the right sided portacatheter. No pneumothorax. IMPRESSION: Bilateral infiltrates and atelectasis with small pleural effusions Electronically signed by Gratn Murray 12/13/2018 2:31 PM
[2018-12-13] MEDS ORDERED: ROCEPHIN 1 GM in NS 50 ML IV ONE (14:40)
[2018-12-13] MEDS ORDERED: ZITHROMAX 500 MG/NS 500 MG/250 ML IVPB IV ONE (14:40)
[2018-12-13 14:57] LABS: BASO# 0.01 X1000 (0.0-0.2); BASO% 0.4 % (0.0-0.8); EOS# 0.08 X1000 (0.0-0.7); EOS% 2.9 % (0.0-10.0); HEMOGLOBIN 8.1 g/dL (12.0-16.0); LYMPH# 0.34 X1000 (1.2-3.4); LYMPH% 12.2 % (20.5-51.1); MCH 36.5 PG (27-31); MCHC 32.4 g/dL (33-37); MCV 112.6 FL (81-99); MONO# 0.14 X1000 (0.11-0.59); MPV 10.9 FL (7.4-10.4); NEUT# 2.21 X1000 (1.4-6.5); NEUT% 79.5 % (42.2-75.2); PLT 66 X1000 (130-400); RBC 2.22 XMIL (4.2-5.4); WBC 2.78 X1000 (4.8-10.8)
[2018-12-13 15:04] LABS: INR 1.15; PROTIME 15.6 Seconds (11.0-16.0)
[2018-12-13 15:05] LABS: PTT 71.2 Seconds (22.3-41.8)
[2018-12-13 15:25] LABS: ALB/GLOB RATIO 0.9; ALBUMIN 2.3 g/dL (3.5-5.0); CREATININE 1.5 mg/dL (0.5-0.9); POTASSIUM 4.4 mmol/L (3.5-5.1); TOTAL BILIRUBIN 0.56 mg/dL (0.20-1.00); TOTAL PROTEIN 4.8 g/dL (6.3-8.3)
[2018-12-13] MEDS ORDERED: TYLENOL PO PRN (16:52)
[2018-12-13] MEDS: SOLU-MEDROL IV SCH (17:18)
--- NOTE | 2018-12-13 17:24 | HISTORY AND PHYSICAL ---
ADDENDUM: Since she has chronic atrial fibrillation she is on Coumadin 2 mg a day, we do need to make sure we have checked pro time, we did it was 15.60. I think it is a little lower than they want, note the PTT though 71 so we will put her back on her atrial fibrillation medications. She is getting DuoNeb at home. We have ordered those here. She gets B12 250 mcg sublingual daily, will continue that, she gets digoxin 125 mg a day will continue that, Cardizem CD 240 mg daily, continue Colace 200 mg at bedtime will continue, ferrous sulfate 325 mg p.o. daily will continue that as well, Lasix she takes 80 mg daily, I am going to hold that, she is on glipizide 5 mg daily and I guess will continue that as well. We will check a hemoglobin A1c tomorrow and kind of put her on a pattern sugars, sliding scale. She gets Fischer 10/325 q.4 hours p.r.n. I am going to hold that for right now, she is on levothyroxine 50 mcg a day, omeprazole 20 mg b.i.d. and Oxy IR 5 mg she gets q.3 hours p.r.n., I am going to hold the OxyIR, Pravachol 40 mg a day and she gets her Coumadin 2 mg daily which will continue. Will check another pro time in the morning. cc: Amol Sullivan MD
--- NOTE | 2018-12-13 18:18 | HISTORY AND PHYSICAL ---
HISTORY OF PRESENT ILLNESS: This is an 82-year-old. She came in. Her son was with her. She is followed by Dr. Perdue in [place]. This 82-year-old says in the last several days, in particular the last 4-5 days, she has become more short of breath with increased productive cough, thick phlegm, dyspnea on exertion. Also dyspnea at rest. She did not have reported fever, but just has had general malaise and very weak. PAST MEDICAL HISTORY: 1. Atrial fibrillation. I believe this is chronic. 2. COPD on home O2, chronic hypoxemia and CO2 retention. 3. Diabetes mellitus type 2. 4. Hypertension. 5. Coronary artery disease. 6. Hypothyroidism. 7. Hyperlipidemia. 8. She has a history of chronic kidney disease, used to see Dr. Toney. 9. She has been treated, too, for ovarian peritoneal cancer or adenocarcinoma and apparently has had chemotherapy. This was a year and a half ago. They claimed that this cancer would never be cured, but it seemed to be in check. 10. She did note an approximately 1 cm papule on her right upper eye that she was planning on seeing Dr. Eduardo for. She claims it has only been there a couple of weeks, but she reports actually feeling bad for 2 to 3 weeks. The last 4 days seemed to be getting worse. ALLERGIES: No known drug allergies. FAMILY HISTORY: First-degree relatives, a lot of her family had heart disease and diabetes. PAST SURGICAL HISTORY: Cholecystectomy. REVIEW OF SYSTEMS: She feels like she is weak. She feels like she is losing weight. Her appetite is poor. She has not had a bowel movement in several days. Respiratory: As above. Cardiovascular: No chest pain or tachycardic palpitations. GI and : Does not report any gross hematuria, hemoptysis or hematochezia. Musculoskeletal/neurologic: No focal complaints. Endocrinologic/immunologic: No significant history. PHYSICAL EXAMINATION: VITAL SIGNS: Temperature 97.8 degrees, pulse 115, respirations 28, blood pressure 112/71. HEENT: Her pupils are equal. Conjunctivae are pink. Sclerae clear. Right eye has a 0.8 to 1 cm papillary growth that was tender to touch. NECK: No distended neck veins. LYMPHATIC: No cervical or supraclavicular adenopathy. No femoral adenopathy. LUNGS: Diminished breath sounds, both bases. No wheezing. Lungs were clear otherwise anterolateral. CARDIOVASCULAR: Regular rhythm and rate without murmur or S3. ABDOMEN: Soft. SKIN: Warm and dry. LABORATORY DATA: White count 2780, hematocrit is 25, hemoglobin 8, platelet count 66,000. Sodium 139, potassium 4.4, chloride 100, BUN 46, creatinine 1.5. The blood sugar is 315, calcium is 8.0, AST 18, ALT 21, alkaline phosphatase 170, total protein is 4.8, albumin is 2.3. Pro time is 15.6, INR is 1.15, PTT is 71. DIAGNOSTIC DATA: Chest x-ray, bilateral infiltrates and atelectasis with small pleural effusions. ASSESSMENT AND PLAN: 1. Chronic obstructive pulmonary disease. It looks like bilateral infiltrates. We are going to treat for bilateral pneumonia, community-acquired, most likely pneumococcal. She has no known drug allergies. I will treat her with ceftriaxone 1 g intravenously daily. We will give her some guaifenesin extended-release 1200 mg twice a day. We will put her on a steroid inhaler. We will use Advair 250/50 one puff twice a day. We will put her on DuoNeb, one treatment every 4 hours while awake and every 2 hours p.r.n. We will give her normal saline at 85 mL/h. I think she may benefit from a little bit of Solu-Medrol as well, so we will give her Solu- Medrol at 40 mg intravenously every 8 hours. 2. History of coronary artery disease. I do not see any evidence of active cardiac ischemia. 3. Hypertension. 4. Diabetes mellitus type 2. We will put her on pattern sugars. 5. History of hypothyroidism. We will check T4, TSH, B12 and folate as well. We will check an a.m. cortisol level, too, to be complete. 6. 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 On looking back at records, I see where she had an abdominopelvic CT done on 10/10/2018. They were following bilateral pleural effusions at that time. She had a stable pancreatic head mass. She had a paracentesis done on 01/08/2017. She was followed by Dr. Levin in the past. We may go ahead and get Dr. Levin involved, make sure we do not need to do any further investigation. We will treat her for bilateral pneumonia. cc: Amol Sullivan MD
[2018-12-13 18:45] LABS: URINE SOURCE CLEAN CATCH
[2018-12-13 18:50] LABS: BILIRUBIN URINE NEGATIVE (NEGATIVE); BLOOD URINE NEGATIVE (NEGATIVE); COLOR YELLOW; GLUCOSE URINE 150 mg/dL (NEGATIVE); KETONE URINE NEGATIVE (NEGATIVE); LEUKOCYTES URINE NEGATIVE (NEGATIVE); NITRITE URINE NEGATIVE (NEGATIVE); PH URINE 5.5; PROTEIN URINE TRACE mg/dL (NEGATIVE); SP GRAVITY URINE 1.018; TURBIDITY URINE HAZY (CLEAR); UR EPITHELIAL CELLS <10 /HPF (<10); URINE BACTERIA 4+ /HPF; URINE RBC <10 /HPF (<10); URINE WBC <10 /HPF (<10); UROBILINOGEN URINE NORMAL (NORMAL)
[2018-12-13 20:00] LABS: INR 1.13; PROTIME 15.4 Seconds (11.0-16.0); PTT 38.5 Seconds (22.3-41.8)
[2018-12-13 20:43] LABS: ALB/GLOB RATIO 1.3; ALBUMIN 2.5 g/dL (3.5-5.0); CALCIUM 7.5 mg/dL (8.8-10.2); CREATININE 1.3 mg/dL (0.5-0.9); POTASSIUM 4.5 mmol/L (3.5-5.1); TOTAL BILIRUBIN 0.43 mg/dL (0.20-1.00); TOTAL PROTEIN 4.5 g/dL (6.3-8.3)
[2018-12-13] MEDS: XOPENEX NEB INH SCH (21:20)
[2018-12-13] MEDS: ATROVENT NEB INH SCH (21:20)
[2018-12-13] MEDS: ADVAIR 250/50 DISKUS INH SCH (21:20)
[2018-12-13] MEDS: COLACE PO SCH (22:25)
[2018-12-13] MEDS: COUMADIN PO SCH (22:25)
[2018-12-13] MEDS: PRILOSEC PO SCH (22:26)
[2018-12-13] MEDS: MUCINEX PO SCH (22:26)
[2018-12-13] MEDS: HUMULIN R SUBQ SCH (22:26)
[2018-12-14] MEDS: SOLU-MEDROL IV SCH ×3 (01:03→16:25)
[2018-12-14] MEDS: XOPENEX NEB INH SCH ×4 (03:29→21:37)
[2018-12-14] MEDS: ATROVENT NEB INH SCH ×4 (03:29→21:37)
[2018-12-14] MEDS ORDERED: LANOXIN IV ONE (05:16)
[2018-12-14] MEDS: SYNTHROID PO SCH ×2 (05:27→07:41)
[2018-12-14] MEDS: CARDIZEM CD PO SCH (05:27)
[2018-12-14] MEDS ORDERED: VANCOMYCIN IV PER PHARMACY MISC SCH (06:15)
[2018-12-14] MEDS ORDERED: VANCOMYCIN 1,450 MG in NS 250 ML IV ONE (07:00)
[2018-12-14 07:11] LABS: HEMATOCRIT 24.6 % (37.0-47.0); HEMOGLOBIN 7.9 g/dL (12.0-16.0); LYMPH# 0.12 X1000 (1.2-3.4); LYMPH% 6.5 % (20.5-51.1); MCH 36.2 PG (27-31); MCHC 32.1 g/dL (33-37); MCV 112.8 FL (81-99); MONO# 0.04 X1000 (0.11-0.59); MONO% 2.2 % (1.7-9.3); MPV 12.1 FL (7.4-10.4); NEUT% 91.3 % (42.2-75.2); PLT 68 X1000 (130-400); RBC 2.18 XMIL (4.2-5.4); RDW 13.9 % (11.5-14.5); WBC 1.86 X1000 (4.8-10.8)
[2018-12-14 07:19] LABS: HEMOGLOBIN A1C 6.7 % (4.8-6.0)
[2018-12-14 07:23] LABS: ALB/GLOB RATIO 0.9; ALBUMIN 2.5 g/dL (3.5-5.0); CALCIUM 8.1 mg/dL (8.8-10.2); CREATININE 1.3 mg/dL (0.5-0.9); POTASSIUM 4.7 mmol/L (3.5-5.1); TOTAL BILIRUBIN 0.41 mg/dL (0.20-1.00); TOTAL PROTEIN 5.2 g/dL (6.3-8.3)
[2018-12-14 07:33] LABS: INR 1.11; PROTIME 15.2 Seconds (11.0-16.0)
[2018-12-14 07:38] LABS: FREE T4 0.99 ng/dL (0.93-1.70); TSH 1.27 uIUmL (0.27-4.20)
[2018-12-14] MEDS: HUMULIN R SUBQ SCH ×4 (07:54→22:06)
[2018-12-14] MEDS: MUCINEX PO SCH ×2 (08:19→22:06)
[2018-12-14] MEDS: LANOXIN PO SCH (08:19)
[2018-12-14] MEDS: VITAMIN B-12 SL SCH (08:19)
[2018-12-14] MEDS: PRILOSEC PO SCH ×2 (08:19→22:06)
[2018-12-14] MEDS: FERROUS SULFATE PO SCH (08:20)
[2018-12-14] MEDS: GLUCOTROL XL PO SCH (08:41)
[2018-12-14] MEDS ORDERED: CARDIZEM CD PO SCH (09:00)
[2018-12-14] MEDS: ADVAIR 250/50 DISKUS INH SCH ×2 (09:00→21:38)
[2018-12-14 11:17] LABS: BANDS 18 % (0-1); LYMPHS 4 % (21-51); MONO 2 % (1-9); SEGS 76 % (42-75)
[2018-12-14 11:18] LABS: HYPOCHROM 1+
--- NOTE | 2018-12-14 14:12 | PROGRESS NOTE ---
DATE: 12/14/2018 SUBJECTIVE: Ms. Meier is breathing a little better. She feels better today. OBJECTIVE: Vital Signs: She remains afebrile, temperature 97.6 degrees, pulse 74, respirations 22, blood pressure 119/47. HEENT: Pupils are equal. Lungs: Clear in all lung shearer anterolateral. I do not hear expiratory wheezing. No prolonged expiratory phase at this time. Cardiovascular: Regular rhythm and rate without murmur or S3. Abdomen: Soft. Skin: Warm and dry. Urine output is 2400 mL. RADIOLOGIC STUDIES: Her chest x-ray come in, bilateral infiltrates, atelectasis and small pleural effusions. Repeat another chest x-ray tomorrow. She does look like she is feeling better. ASSESSMENT AND PLAN: 1. Treating her for bronchitis and exacerbation of chronic obstructive pulmonary disease and possible bilateral pneumonia. 2. History of coronary artery disease. No evidence of active cardiac ischemia. 3. Hypertension. 4. Diabetes mellitus type 2. Sugars under good control. 5. History of hypothyroidism. Appears to be euthyroid. 6. History of cancer and treatment was described as ovarian and peritoneal cancer without an ovarian primary found I think. 7. Lastly, she has a history of atrial fibrillation, been on Coumadin. Her rate is controlled. Pro time is only 15. Electrolytes unremarkable. Creatinine is 1.3. CBC, though kind of pancytopenia, platelet count 68,000, hematocrit 24, white blood cell count 1860, so I think Dr. Levin is her oncologist leak inspector and will have him look at her and see about the pancytopenia. cc: Amol Sullivan MD
[2018-12-14] MEDS ORDERED: ROCEPHIN 1 GM in NS 50 ML IV SCH (15:00)
--- NOTE | 2018-12-14 15:41 | HEMO/ONC CONSULTATION ---
DATE: 12/14/2018 REQUESTING PHYSICIAN: Dr. Sullivan. REASON FOR CONSULTATION: Ovarian malignancy. CHIEF COMPLAINT/HISTORY OF PRESENT ILLNESS: The patient is 83-year-old female who is well known to me. She was admitted to the hospital with complains of increasing shortness of breath, tiredness and productive cough over the last 3 to 4 days. She has been diagnosed to have COPD exacerbation/pneumonia and she is on nebulizers and broad-spectrum antibiotics. She is starting to feel somewhat better today. Her appetite has come back and she had her breakfast this morning. She is in good spirits. She is well known to me over the last 2 years. She presented 2 years ago with massive ascites and was diagnosed to have primary peritoneal carcinomatosis. She was treated initially with carboplatin and Taxol weekly and in 06/2018 was started on Rubraca. Over the last few weeks she has slowly declined. Her cancer marker CA-125 has slowly climbed up to 189. Due to increasing tiredness and weakness we stopped her Rubraca about 1 to 2 weeks ago with plans for reassessing in about 3 to 4 weeks. Lately she has also developed significant anemia. She has a history of pancreatic mass which has been biopsied in 2017 and documented as benign. Subsequent scans have not shown any worsening in the size of this mass. PAST MEDICAL HISTORY: CAD, COPD, chronic atrial fibrillation, diabetes, hypertension, hyperlipidemia. PAST SURGICAL HISTORY: Cholecystectomy. ALLERGIES: No known drug allergies. CURRENT MEDICATIONS: Ceftriaxone, vancomycin, Solu-Medrol, Prilosec, Coumadin, Synthroid, Xopenex, Atrovent, mini NEB, Glucotrol, Colace, Cardizem, Lanoxin. REVIEW OF SYSTEMS: As dictated above. All other review of systems are negative. PHYSICAL EXAMINATION: Patient is elderly female who currently appears to be in no acute distress.Vital Signs: Temperature 97.5 degrees, pulse 125, blood pressure 131/67. HEENT: EOMI. PERRLA. Anicteric. Mucous membranes appear slightly dry. Cardiac: Slightly irregular rate and rhythm. Normal S1, S2. Chest: Reveals rhonchorous breath sounds bilaterally. Crackles in bilateral lower zones. Abdomen: Soft, nontender, without hepatosplenomegaly or masses. Extremities: No cyanosis, clubbing. Neurological: Alert and oriented x3. No focal motor deficits. Skin: Without rashes, petechia or ecchymosis. LABORATORY DATA: White count 1.86, hemoglobin 7.9, hematocrit 24, MCV 112, platelets 68,000, MPV 12.1. ANC 1.7. BUN 45, creatinine 1.3. LFTs are normal. B12, folate, TSH within normal limits. Chest x-ray, bilateral infiltrates and atelectasis and small pleural effusion. ASSESSMENT AND PLAN: 1. Bilateral pulmonary infiltrates and small pleural effusion. 2. Primary peritoneal carcinomatosis. 3. Chronic obstructive pulmonary disease exacerbation. 4. Atrial fibrillation with rapid ventricular response. 5. Pancytopenia. Continue current management with nebulizers, broad-spectrum antibiotics, and steroids as you are doing for COPD exacerbation/pneumonia. From her cancer standpoint, her tumor marker has been slowly rising. At the same time she has also developed significant deconditioning over the last 4-8 weeks. Hence we stopped Rubraca this past week with hopes of making her feel better partly from the side effects of the drug. Of note previously she had tolerated this drug extremely well. Her pancytopenia is unclear to me at this time. Will perform peripheral blood workup at this time to evaluate this. I will continue to follow her along with you. cc: Jules Levin MD
[2018-12-14] MEDS: COLACE PO SCH (22:06)
[2018-12-14] MEDS: COUMADIN PO SCH (22:06)
[2018-12-15] MEDS: SOLU-MEDROL IV SCH ×4 (01:07→16:23)
[2018-12-15] MEDS: ATROVENT NEB INH SCH ×4 (04:00→21:26)
[2018-12-15] MEDS: XOPENEX NEB INH SCH ×4 (04:00→21:26)
[2018-12-15 06:16] LABS: INR 1.43; PROTIME 18.5 Seconds (11.0-16.0)
[2018-12-15 06:50] LABS: HEMATOCRIT 22.8 % (37.0-47.0); HEMOGLOBIN 7.7 g/dL (12.0-16.0); LYMPH# 0.15 X1000 (1.2-3.4); LYMPH% 5.8 % (20.5-51.1); MCH 37.4 PG (27-31); MCHC 33.8 g/dL (33-37); MCV 110.7 FL (81-99); MONO# 0.17 X1000 (0.11-0.59); MONO% 6.5 % (1.7-9.3); NEUT# 2.28 X1000 (1.4-6.5); NEUT% 87.7 % (42.2-75.2); PLT 88 X1000 (130-400); RBC 2.06 XMIL (4.2-5.4); RDW 13.6 % (11.5-14.5)
[2018-12-15] MEDS: HUMULIN R SUBQ SCH ×4 (06:52→21:32)
[2018-12-15] MEDS: SYNTHROID PO SCH (06:53)
[2018-12-15] MEDS: CARDIZEM CD PO SCH (06:53)
[2018-12-15 06:57] LABS: POTASSIUM 4.1 mmol/L (3.5-5.1)
[2018-12-15 06:58] LABS: ALB/GLOB RATIO 0.9; ALBUMIN 2.5 g/dL (3.5-5.0); CALCIUM 8.4 mg/dL (8.8-10.2); CREATININE 1.6 mg/dL (0.5-0.9); TOTAL BILIRUBIN 0.31 mg/dL (0.20-1.00); TOTAL PROTEIN 5.2 g/dL (6.3-8.3)
[2018-12-15 07:15] LABS: BANDS 2 % (0-1); LYMPHS 7 % (21-51); MONO 2 % (1-9); SEGS 89 % (42-75)
[2018-12-15 07:16] LABS: ANISOCYTOSIS 1+
[2018-12-15] MEDS: MUCINEX PO SCH ×2 (08:09→21:32)
[2018-12-15] MEDS: FERROUS SULFATE PO SCH (08:10)
[2018-12-15] MEDS: VITAMIN B-12 SL SCH (08:10)
[2018-12-15] MEDS: LANOXIN PO SCH (08:10)
[2018-12-15] MEDS: PRILOSEC PO SCH ×2 (08:11→21:32)
[2018-12-15] MEDS: GLUCOTROL XL PO SCH (09:22)
--- NOTE | 2018-12-15 10:16 | Diag Imaging Result Doc PS360 ---
EXAM: CHEST-2 VIEWS HISTORY: pneumonia TECHNIQUE: Chest, two views COMPARISON: 12/13/2018 FINDINGS: There is a moderate sized left pleural effusion and small right pleural effusion. Dense infiltrates are found in the mid and lower right lung and there is bilateral basilar atelectasis. The infiltrates are less pronounced on the current study. No change in the right-sided portacatheter. IMPRESSION: Overall interval improvement. Electronically signed by Grant Murray 12/15/2018 10:14 AM
--- NOTE | 2018-12-15 10:54 | PROGRESS NOTE ---
DATE: 12/15/2018 SUBJECTIVE: Ms. Meier says she is breathing better, but if she gets up and just walks a couple steps, she gets very short of breath. She is on oxygen at home 2.5 L. OBJECTIVE: Vital Signs: She remains afebrile, temperature 98.5 degrees, pulse 108, respirations 20, blood pressure 113/43. HEENT: Pupils are equal and round. Neck: No distended neck veins. Lungs: Clear anterolateral, decreased breath sounds both bases. No wheezing. No prolonged expiratory phase at this point. Cardiovascular: Regular rhythm and rate without murmur or S3. Abdomen: Soft. Skin: Warm and dry. Urine output is 640 mL. Blood sugar 304, 278, 230. Her chest x-ray overall improvement, moderate sized left pleural effusion, small right pleural effusion, dense infiltrate found in the mid lower right lung, bilateral basilar atelectasis. Infiltrates are less pronounced on this current study. No change in the right-sided Port-A-Cath. ASSESSMENT AND PLAN: 1. Bilateral pulmonary infiltrates. Small pleural effusion. 2. Primary peritoneal carcinomatosis. Dr. Levin following and treat. 3. Chronic obstructive pulmonary disease exacerbation. 4. Atrial fibrillation, rapid ventricular response, rate is controlled. 5. Pancytopenia. I am going to ask Pulmonary to help see if they have any ideas, see if they think she would benefit from tapping the pleural fluid. She is better. She is breathing better at rest but with any exertion, she gets very short of breath. REVIEW OF ORDERS: Getting digoxin 125 mcg p.o. daily, vitamin B12 2500 mcg sublingual daily, Colace 200 mg at bedtime, Cardizem CD 240 mg a day, glipizide ER 5 mg a day, guaifenesin ER 1200 mg q.12, Synthroid 50 mcg p.o. daily, methylprednisone 40 mg IV q.8h, Prilosec 20 mg b.i.d., ceftriaxone 1 g q.24 hours, vancomycin 1550 mg IV every 48 hours, Coumadin 2 mg at bedtime, digoxin 125 mcg was given 1 time when she came into the emergency room. I think we have turned her fluids down to keep vein open. She grew out gram-positive cocci in 2 of 2 blood cultures. cc: Amol Sullivan MD
[2018-12-15] MEDS: ADVAIR 250/50 DISKUS INH SCH ×2 (11:14→21:32)
[2018-12-15] MEDS: ROCEPHIN 1 GM in NS 50 ML IV SCH (11:41)
[2018-12-15] MEDS: ZYVOX 600 MG/D5W 600 MG/300 ML IVPB IV SCH (12:26)
[2018-12-15] MEDS ORDERED: CUBICIN 350 MG in NS 100 ML IV SCH (13:00)
--- NOTE | 2018-12-15 13:09 | INFECTIOUS DISEASE CONSULT REP ---
DATE: 12/15/2018 CONCLUSION: 1. The patient has a gram-positive cocci in her blood and from her sputum. She could have started out with a pneumonia and that became hematogenous. Another possibility would be that the patient has a Port-A-Cath infection which became bacteremic and caused a hematogenous pneumonia as well. The patient has decreased hearing. Her creatinine is going up and her GFR is going down. 2. Patient may have a urinary tract infection. RECOMMENDATIONS: I have discontinued vancomycin. I have increased Rocephin from 1 g every 24 hours to 1 g every 12 hours, and I have started the patient on Zyvox 600 mg p.o. every 12 hours. I have ordered a urine culture. DISCUSSION: The patient tells me that in the past 2 weeks she has been weak and short of breath. She has not had fever or chills. She has not been coughing. DIAGNOSTIC STUDIES: Laboratory studies show that both the blood cultures and the sputum culture growing gram-positive cocci. The patient's CBC shows a white count of 2600, hemoglobin 7.7, and platelet count of 88,000. Creatinine is 1.6, GFR is 31. Liver function studies are normal except for an alkaline phosphatase of 138. Urinalysis showed bacteria, but no white cells. Sputum and blood cultures are growing gram-positive cocci. The chest x-ray shows bilateral pleural effusions with the left pleural effusion larger than the right. There is also an infiltrate in the right middle and lower lobes, which is better on today's x-ray, and the there also is bibasilar atelectasis. OBSTETRICAL/GYNECOLOGICAL HISTORY: Not containing on is a 1, para 1, AB 0. REVIEW OF SYSTEMS: Eyes and Ears: She has decreased vision and hearing. Neck: No stiffness. Respiratory: The patient is short of breath, but she is not coughing or bringing up any sputum. Cardiac: No chest pain or palpitations. The patient does have chronic atrial fibrillation, however. Gastrointestinal: No nausea, vomiting, or diarrhea. Genitourinary: No dysuria or flank pain. Neurologic: No seizures. No loss of motor or sensory function. Integument: No rash. PREVIOUS HOSPITALIZATIONS AND OPERATIONS: She has had a cholecystectomy and a hospitalization for pancreatitis. She has had a Port-A-Cath placed on the right side. She had a fracture of her right leg, and she has metal that has been placed in her femur. The patient has been admitted with atrial fibrillation, diabetes mellitus, and an ovarian peritoneal cancer. MEDICAL DISEASES: Positive for diabetes mellitus, hypertension, atrial fibrillation, hypothyroidism, hyperlipidemia, end-stage renal disease, COPD, coronary artery disease, and ovarian peritoneal cancer. INFECTIOUS DISEASE HISTORY: Positive for pneumonia and UTI. FAMILY HISTORY: Positive for stroke, diabetes mellitus, and cancer. [place]IAL H[place]ORY[place] . She lives alone. She does not have any pets at home. ALLERGIES: She has no known drug allergies. MEDICATIONS: Her medication at home include the following: Albuterol inhaler, colchicine, ferrous sulfate, Prozac, Synthroid, Prilosec, and Coumadin. PHYSICAL EXAMINATION: Vital Signs: Temperature is 98.5 degrees, pulse 108, respirations 20, blood pressure 113/43. Height/weight: The patient is 5 feet 3 inches tall and weighs 131 pounds. General: This is an ill-appearing elderly female. She is in no acute distress. Head, Eyes, Ears, Nose, and Throat: She has decreased hearing and vision. She does not have any white patches in her mouth. There is no drainage from the nose or ears. Neck: There is no pain when she moves her neck. Lungs: Clear to auscultation. Cardiovascular: Heart rate is irregular. Abdomen: Soft and nontender. Neurologic: The patient is awake. She can move her extremities. There is no tremor. Her sensation is intact to touch. Her memory as regarding her medical history is slightly reduced. There is no tremor. Integument: No rash. Thank you for the consult. cc: Rudolph Fall MD
--- NOTE | 2018-12-15 18:23 | CONSULTATION ---
DATE OF CONSULTATION: 12/15/2018 REQUESTING PROVIDER: Amol Sullivan MD REASON FOR CONSULTATION: Help with evaluation and treatment. HISTORY OF PRESENT ILLNESS: This is an 83-year-old female with a medical history of chronic hypoxic respiratory failure secondary to COPD, primary peritoneal carcinomatosis, atrial fibrillation, diabetes mellitus type 2, hypertension, coronary artery disease, hyperlipidemia, chronic kidney disease, hypothyroidism, osteoarthritis, benign pancreatic mass. She presented to the ER on 12/13/2018 with worsening weakness. Initial workup in the ER revealed bilateral community-acquired pneumonia. She has been admitted for further evaluation and management. At the time of my examination, patient is resting in bed comfortably. She is breathing at room air. She does develop some shortness of breath with simple movement in bed and talking. She reports worsening dyspnea on exertion and productive cough with white sticky phlegm for 1 week. She also has bilateral lower extremity significant varicose with pedal edema at times. She reports gout on the left great toe. She reports no fever, chills or intentional weight change, constipation, diarrhea, chest pain or palpitation. PAST MEDICAL HISTORY: 1. Chronic hypoxic respiratory failure. 2. COPD on home oxygen as needed. 3. Primary peritoneal carcinomatosis followed up by Dr. Levin, status post chemotherapy. 4. Atrial fibrillation. 5. Diabetes mellitus type 2 with nephropathy. 6. Hypertension. 7. Coronary artery disease. 8. Hyperlipidemia. 9. Chronic kidney disease, stage IV. 10. Hypothyroidism. 11. Osteoarthritis. 12. Benign pancreatic mass status post biopsy in 2017. 13. Right femur fracture status post intramedullary nailing. 14. Port-A-Cath placement. 15. Cholecystectomy. SOCIAL HISTORY: The patient lives alone. She has a son who checks on her routinely. She has no history of alcohol, tobacco, or illicit drug use. FAMILY HISTORY: Positive for stroke, diabetes, and cancer. ALLERGIES: No known drug allergies. REVIEW OF SYSTEMS: A 10-point review of systems was conducted, and the pertinent is listed within the HPI, otherwise noncontributory. PHYSICAL EXAMINATION: Vital Signs: Temperature 97.6 degrees, blood pressure 122/48, pulse 100, respiratory rate 22, oxygen saturation 100% on room air. General: Chronically ill appearing, resting in bed in no acute distress. A lesion type nodule above the outside corner of the right eye, which per patient is 1 type of skin cancer and followed up by Dr. Eduardo.HEENT: Atraumatic. Trachea midline. Mucosa pink and moist. Respiratory: Even and unlabored. Symmetrical excursion. Auscultation reveals diminished breathing sounds, early inspiratory crackles and late expiratory wheezing bilaterally with prolonged expiratory phase. Cardiovascular: Regular rate and rhythm. Gastrointestinal: Normoactive bowel sounds in all 4 quadrants. Soft, nontender, nondistended. Extremities: Trace pedal edema, severe varicose on both feet. Left great toe mildly swollen. No cyanosis. No clubbing. Dorsalis pedis 2+ bilaterally. Neurologic: Alert and oriented x3. Speech fluent. Following commands. LABORATORY DATA: White blood cells 2.60, hemoglobin 7.7, hematocrit 22.8, platelets 88,000. Sodium 138, potassium 4.1, chloride 101, carbon dioxide 25, BUN 54, creatinine 1.6, glucose 210. IMAGING DATA: Chest x-ray revealed overall interval improvement in dense infiltrates in the mid and lower right lung and bilateral basilar atelectasis with stable moderate- sized left pleural effusion and small right pleural effusion. ASSESSMENT: This is an 83-year-old female with a medical history of chronic hypoxic respiratory failure secondary to chronic obstructive pulmonary disease, primary peritoneal carcinomatosis, atrial fibrillation, diabetes mellitus type 2, hypertension, coronary artery disease, hyperlipidemia, chronic kidney disease, hypothyroidism, osteoarthritis, benign pancreatic mass and she has been admitted to the medical floor for bilateral community- acquired pneumonia. 1. Bilateral pneumonia. 2. Bacteremia. 3. Chronic obstructive pulmonary disease. 4. Pleural effusion, moderate on the left and small on the right. 5. Bilateral basilar atelectasis. 6. Pancytopenia. PLAN: 1. Continue supplemental oxygen as needed; 2. Continue antibiotics, steroids and bronchodilators. 3. Follow up with CBC and BMP. Check chest x-ray and ABG if indicated. 4. Consider thoracentesis, if indicated. 5. Dr. Fall and Dr. Levin are on board. 6. Continue GI and DVT prophylaxis. 7. Further recommendations pending hospital course. Thank you for the courtesy of this consult. Dictated by COMPA Hernandez for Arthur Perdomo MD cc: COMPA Hernandez MD [facility]
[2018-12-15] MEDS: COLACE PO SCH (21:32)
[2018-12-15] MEDS: COUMADIN PO SCH (21:32)
[2018-12-16] MEDS: ZYVOX 600 MG/D5W 600 MG/300 ML IVPB IV SCH (00:57)
[2018-12-16] MEDS: XOPENEX NEB INH SCH ×4 (03:32→22:13)
[2018-12-16] MEDS: ATROVENT NEB INH SCH ×4 (03:32→22:13)
[2018-12-16] MEDS: ROCEPHIN 1 GM in NS 50 ML IV SCH ×2 (03:42→11:35)
[2018-12-16] MEDS: SOLU-MEDROL IV SCH ×3 (03:43→16:30)
[2018-12-16] MEDS: CARDIZEM CD PO SCH (05:34)
[2018-12-16] MEDS: HUMULIN R SUBQ SCH ×4 (06:48→21:56)
[2018-12-16] MEDS: SYNTHROID PO SCH (06:48)
[2018-12-16] MEDS ORDERED: VANCOMYCIN 1,150 MG in NS 250 ML IV SCH (07:00)
[2018-12-16 07:33] LABS: HEMATOCRIT 23.9 % (37.0-47.0); HEMOGLOBIN 7.8 g/dL (12.0-16.0); IMM GRAN# 0.04 X1000 (0.0-0.04); IMM GRAN% 1.6 % (0.0-0.5); LYMPH# 0.13 X1000 (1.2-3.4); MCH 36.1 PG (27-31); MCHC 32.6 g/dL (33-37); MCV 110.6 FL (81-99); MONO# 0.12 X1000 (0.11-0.59); MONO% 4.7 % (1.7-9.3); MPV 11.5 FL (7.4-10.4); NEUT# 2.29 X1000 (1.4-6.5); NEUT% 88.7 % (42.2-75.2); PLT 91 X1000 (130-400); RBC 2.16 XMIL (4.2-5.4); WBC 2.58 X1000 (4.8-10.8)
[2018-12-16 07:34] LABS: INR 1.77
[2018-12-16 07:52] LABS: POTASSIUM 4.3 mmol/L (3.5-5.1)
[2018-12-16 07:53] LABS: CREATININE 1.6 mg/dL (0.5-0.9)
--- NOTE | 2018-12-16 08:37 | EKG Report ---
Test Performed on : 12/13/2018 1:52:52 PM Test Reason : WEAKNESS, LEFT UPPER BACK PAIN Blood Pressure : / mmHG Vent. Rate : 138 BPM Atrial Rate : 078 BPM P-R Int : 000 ms QRS Dur : 106 ms QT Int : 312 ms P-R-T Axes : 000 043 -27 degrees QTc Int : 472 ms Supraventricular tachycardia. with premature supraventricular complexes. Incomplete right bundle branch block Septal infarct , age undetermined ST & T wave abnormality, consider anterior ischemia Abnormal ECG When compared with ECG of 31-DEC-2016 10:09, Sinus rhythm. has replaced Atrial fibrillation. Vent. rate has increased BY 54 BPM Incomplete right bundle branch block is now present Unconfirmed Result
[2018-12-16] MEDS: GLUCOTROL XL PO SCH (09:05)
[2018-12-16] MEDS: PRILOSEC PO SCH ×2 (09:05→21:55)
[2018-12-16] MEDS: VITAMIN B-12 SL SCH (09:05)
[2018-12-16] MEDS: MUCINEX PO SCH ×2 (09:05→21:55)
[2018-12-16] MEDS: FERROUS SULFATE PO SCH (09:05)
[2018-12-16] MEDS: LANOXIN PO SCH (09:06)
[2018-12-16] MEDS: ADVAIR 250/50 DISKUS INH SCH ×2 (09:58→22:14)
--- NOTE | 2018-12-16 12:03 | INFECTIOUS DISEASE PROGRESS NO ---
DATE: 12/16/2018 PRESENT ILLNESS: The patient has a pneumococcal bacteremia and pneumonia. 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 MEDICATIONS: The patient is on a combination of Rocephin and Zyvox. OBJECTIVE: Vital Signs: Temperature is 98 degrees, pulse 62, respirations 16, blood pressure 120/60. General: This is an ill-appearing, elderly female. She is in no acute distress. Head, eyes, ears, nose and throat: She has marked decrease in her hearing. She can see near objects. She does not have any white patches on her tongue. Neck: She does not have any pain when she moves her neck. Lungs: Clear to auscultation. Cardiovascular: Heart rate is regular, but there are premature beats that occur as well. Abdomen: Soft and nontender. Thorax: The patient has a Port-A-Cath in place on the right side. The site is not swollen or erythematous or tender. Neurologic: The patient is alert. She can ambulate without difficulty. She does not have a tremor. She does have though a marked decrease in her hearing. LABORATORY AND X-RAY: Both the blood and sputum are growing Streptococcus pneumoniae. CBC shows a white count of 2580, hemoglobin 7.8, and platelet count 91,000. Creatinine is 1.6. GFR is 31. ASSESSMENT AND PLAN: 1. The patient I think initially had pneumococcal pneumonia. Then the patient developed a bacteremia from the pneumonia. The patient may well have an immunoglobulin deficiency also. My plan is to continue treatment with Rocephin 1 g IV every 12 hours and discontinue Zyvox. I have ordered repeat blood cultures for today, and also I have ordered immunoglobulins to be drawn today also. If the patient's repeat blood cultures are sterile, then I think the patient can go home and I would plan on treating her for a total of 14 days with Rocephin, with day #1 being the first day that the patient's repeat blood cultures are sterile. If the patient's immunoglobulin G level is low, then I will plan on giving the patient IVIG and wait about 6 or 8 weeks and repeat the immunoglobulin levels and if the IgG has become low again, then I think the patient would merit having monthly IVIG. 2. Comorbidity: Unfortunately the patient has ovarian peritoneal cancer and also she has diabetes mellitus, atrial fibrillation, end-stage renal disease, chronic obstructive pulmonary disease. cc: Rudolph Fall MD
--- NOTE | 2018-12-16 12:52 | Diag Imaging Result Doc PS360 ---
CT THORAX W/O CONTRAST - 12/16/2018 INDICATION: SOB COMPARISON: 10/10/2018, 12/31/2016 FINDINGS: There has been significant decrease in size of the hiatal hernia. However there is now a moderately large left basilar pleural effusion with collapse of the majority of the left lower lobe. There is ill-defined infiltrate throughout both upper lobes, right greater than left. There is also some faint infiltrate in the right middle lobe and right lower lobe. There is some pleural thickening of the right lung base similar to prior that is likely due to scarring. There is significant body wall edema. There is severe calcified vascular disease. The yurok kidneys are somewhat atrophic. There is a partially imaged suspicious soft tissue density mass at the pancreatic head. This measures 6.5 x 6.9 cm in AP and lateral dimensions, which has increased very slightly since prior. There is significant cardiomegaly that has worsened since prior. There is thinning of the myocardium. There is a right chest port in good position. IMPRESSION: 1. Increasing size of the left basilar pleural effusion. Worsening collapse of the left lower lobe. Significant infiltrates throughout the right lung and left upper lobe as well. 2. Slight increase in size of the large pancreatic head mass. 3. Cardiomegaly with myocardial thinning. This exam was performed using automated exposure control, adjustment of mA or kV according to patient size, and/or use of iterative reconstruction technique Electronically signed by Saul Stewart 12/16/2018 12:50 PM
--- NOTE | 2018-12-16 13:48 | HEMO/ONC PROGRESS NOTE ---
DATE: 12/16/2018 SUBJECTIVE: Ms. Meier is resting in bed, in no acute distress. She denies any pain this morning. She states that she is very tired and weak. OBJECTIVE: Vital signs: Temperature 97.5, pulse rate 86, respiratory rate 16, blood pressure 109/54. She is 98% on 2 L nasal cannula, 0/10 pain. PHYSICAL EXAMINATION: General: Elderly female that appears to be in no acute distress. Respiratory: Lungs are clear to auscultation with expiratory wheezes with diminished breath sounds at the bases. Cardiovascular: Regular rate and rhythm. Abdomen: Soft and nontender without hepatosplenomegaly or masses. Extremities: No edema noted. Neurological: Alert and oriented x3. No focal motor deficits. LABORATORY: White blood cells 2.58, hemoglobin 7.8, hematocrit 23.9, platelet count 91. Sodium 135, calcium 8.0. Chest x-ray reveals bilateral infiltrates, atelectasis, and small pleural effusion. ASSESSMENT: 1. Bilateral pulmonary infiltrates and small pleural effusion. 2. Primary peritoneal carcinomatosis. 3. Chronic obstructive pulmonary disease exacerbation. 4. Atrial fibrillation with rapid ventricular response. 5. Pancytopenia. PLAN: Continue current management with nebulizers, broad-spectrum antibiotics, and steroids as you are doing for the COPD exacerbation and pneumonia. Dr. Fall believes her Pneumococcal pneumonia has also developed a bacteremia. Agree with running an immunoglobulin panel to assess for immunodeficiency. From her cancer standpoint, her tumor marker has been slowly rising. She has also developed deconditioning. We stopped her current therapy of Rubraca in the past week to see her symptoms would improve. She has tolerated this drug extremely well over the last year. Etiology of her pancytopenia is unclear at this time. We will wait for peripheral blood workup to evaluate and will continue to monitor. Dictated by COMPA Adams for Jules Levin MD Patient seen and examined. As above. Patient is in better spirits and reports that she is feeling stronger. She walked in the hallway today. Continue antibiotics for pneumococcal pneumonia and bacteremia per Dr. Fall. She is walking with physical therapy. Her appetite is back and she is eating better. Push protein shakes. Hopefully home sometime soon when Dr. Fall feels comfortable. Jules Levin M.D. [facility]
--- NOTE | 2018-12-16 14:00 | PROGRESS NOTE ---
DATE: 12/16/2018 SUBJECTIVE: Ms. Meier is doing better. She was able to walk down the noe some. Breathing seems to be doing better. She is eating. Feels a little stronger. OBJECTIVE: Vital Signs: Temperature 97.8 degrees, pulse 111, respirations 20, blood pressure 110/59. Eyes: Pupils are equal and round. Lungs: Clear in all lung shearer. Cardiovascular: Regular rhythm and rate without murmur or S3. Abdomen: Soft. Skin: Warm and dry. : Urine output was 1000 mL. ASSESSMENT AND PLAN: Pneumococcal bacteremia pneumonia. 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 She is on the combination Rocephin and Zyvox. Continue. Seems to be making clinical progress. We did do a CT of her chest this morning: Increased size of left basilar pleural effusion, worsening collapse of left lower lobe, significant infiltrates throughout the right lung, right upper lobe. Slight increased size in the large pancreatic head mass and cardiomegaly with myocardial thinning. ASSESSMENT AND PLAN: 1. Bilateral pneumonia. 2. Bacteremia. 3. Chronic obstructive pulmonary disease exacerbation. 4. Pleural effusion, moderate on the left and small on the right. 5. Bilateral basilar atelectasis. 6. Pancytopenia. Continue supplemental oxygen and antibiotics and steroids, bronchodilators, considering thoracentesis if indicated, and continue her gastrointestinal and deep vein thrombosis prophylaxis. In regards to her CT scan, significant increased size in the pancreatic head mass. It has been treated before with peritoneal carcinomatosis, so we will see what Dr. Levin thinks about this. cc: Amol Sullivan MD
[2018-12-16] MEDS: COUMADIN PO SCH (21:55)
[2018-12-16] MEDS: COLACE PO SCH (21:55)
[2018-12-17] MEDS: ROCEPHIN 1 GM in NS 50 ML IV SCH ×3 (00:13→22:33)
[2018-12-17] MEDS: SOLU-MEDROL IV SCH ×3 (00:13→22:33)
[2018-12-17] MEDS: ATROVENT NEB INH SCH ×4 (03:16→22:22)
[2018-12-17] MEDS: XOPENEX NEB INH SCH ×4 (03:16→22:22)
[2018-12-17] MEDS: CARDIZEM CD PO SCH (06:25)
[2018-12-17] MEDS: SYNTHROID PO SCH (06:25)
[2018-12-17] MEDS: HUMULIN R SUBQ SCH ×4 (06:26→22:34)
[2018-12-17 07:15] LABS: INR 2.1; PROTIME 25.1 Seconds (11.0-16.0)
--- NOTE | 2018-12-17 10:19 | PROVIDER PROGRESS NOTE ---
Progress Note Pulmonary additional Note: CT chest seen. She has pleural effusion. However has elevated Probnp in range of 8500 and she is on warfarin. Will attempt diuresis and conservative approach for now.
[2018-12-17] MEDS: ADVAIR 250/50 DISKUS INH SCH ×2 (10:43→22:22)
--- NOTE | 2018-12-17 11:17 | INFECTIOUS DISEASE PROGRESS NO ---
DATE: 12/17/2018 PRESENT ILLNESS: The patient has pneumococcal pneumonia with an associated bacteremia. She also has a gram-positive coccus growing from her urine, which may well be pneumococcus also. Patient has a marginally low IgG level of 628. This is clinically not significant and does not merit treatment with intravenous immunoglobulin infusion. MEDICATIONS: The patient is receiving Rocephin in a dose of 1 g IV every 12 hours. PHYSICAL EXAMINATION: Vital Signs: Temperature is 97.3 degrees, pulse 99, respirations 18, blood pressure 115/67. General: This is an ill-appearing elderly female. She is in no acute distress. Head/eyes/ears/nose/throat: She has decreased hearing. She can see near objects. She does not have any white patches on her tongue. Neck: She does not have any pain when she moves her neck. Thorax: Patient has a Port-A-Cath present on the right side. The site is not erythematous or purulent. Lungs: Clear to auscultation. Cardiovascular: Heart rate is regular. Abdomen: Soft and nontender. Neurologic: The patient is alert. She can ambulate on her own. She does not have a tremor. She does however have a decrease in hearing as mentioned earlier. LAB AND X-RAY: There is no CBC or BMP for today. Repeat blood cultures are pending. CT scan of the chest of the chest shows worsening left lower lobe collapse and an increased left pleural effusion. There is also present right lung infiltrates. Finally, there is an increased size of the patient's pancreatic mass. ASSESSMENT AND PLAN: The patient has pneumococcal pneumonia with an associated pneumococcal bacteremia. She does have a gram-positive coccus in her urine, which may well be pneumococcus as well. The plan is that if the patient's blood cultures remain negative that she will be sent home tomorrow on IV Rocephin with day #1 of treatment being the first day that the repeat blood cultures are sterile. The patient does have a decrease in her IgG level. However, I do not think it is clinically significant, and does not require intravenous immunoglobulin infusion. COMORBIDITIES: The patient's comorbidities show unfortunately the patient has peritoneal cancer. She also has diabetes mellitus, atrial fibrillation, end-stage renal disease, and chronic obstructive pulmonary disease. cc: Rudolph Fall MD
[2018-12-17] MEDS: LANOXIN PO SCH (11:38)
[2018-12-17] MEDS: FERROUS SULFATE PO SCH (11:38)
[2018-12-17] MEDS: MUCINEX PO SCH ×2 (11:38→22:33)
[2018-12-17] MEDS: VITAMIN B-12 SL SCH (11:38)
[2018-12-17] MEDS: GLUCOTROL XL PO SCH (11:39)
[2018-12-17] MEDS: PRILOSEC PO SCH ×2 (11:39→22:33)
--- NOTE | 2018-12-17 12:49 | PROGRESS NOTE ---
DATE: 12/17/2018 SUBJECTIVE: Ms. Meier is feeling better. Feels a little stronger. Eating her lunch at the time I saw her. Breathing comfortably. OBJECTIVE: Temperature 97.6 degrees, pulse 93, respirations 18, blood pressure 101/62. Pupils are equal and round. Lungs are clear in all lung shearer. Cardiovascular Examination: Regular rhythm and rate without murmur or S3. Abdomen is soft. Skin is warm and dry. Blood sugars 266, 225, 245. ASSESSMENT/PLAN: 1. CT scan has pleural effusion. Elevated proBNP of 8500. She is on warfarin. Continue to attempt diuresis. 2. The patient has pneumococcal pneumonia and associated bacteremia. She has gram-positive cocci growing from the urine, which may be pneumococcus as well. The patient has a low IgG of 628, which Dr. Fall feels is clinically significant. Continue Rocephin 1 g intravenous every 12 hours. I think the plan is to see what the cultures show and it is a possibility she could be discharged tomorrow with antibiotics for another 2 weeks. 3. Chronic obstructive pulmonary disease with exacerbation. 4. Pleural effusion, moderate on the left and small on the right. Dr. Perdomo is following. 5. Bilateral basilar atelectasis. 6. Pancytopenia. 7. She has been treated for primary peritoneal carcinomatosis. Note that chest CT shows increased size of large pancreatic head mass. I will discuss this with Dr. Levin. cc: Amol Sullivan MD
--- NOTE | 2018-12-17 15:22 | HEMO/ONC PROGRESS NOTE ---
DATE: 12/17/2018 SUBJECTIVE: Ms. Meier is resting in bed, in no acute distress. She states she feels quite well this morning. She states that she is continuing to feel stronger every day. She is eating well. She requests protein shakes to be added to her diet. She is hoping to go home soon. OBJECTIVE: Vital Signs: Temperature 97.3 degrees, pulse rate 99, respiratory rate 18, blood pressure 115/67, O2 saturation 95% on 2 L via nasal cannula, 0/18 pain. General: Elderly appearing female in no acute distress. She is hard of hearing. Respiratory: Lungs are clear to auscultation. Cardiovascular: S1, S2 noted. Regular rate and rhythm. Abdomen: Soft, nontender, nondistended, without hepatosplenomegaly. Extremities: No edema noted. Moves all 4 extremities. Neurological: Alert and oriented x3. LABORATORY: No new labs were drawn today. ASSESSMENT: 1. Bilateral pulmonary infiltrates and small pleural effusion. 2. Primary peritoneal carcinomatosis. 3. Chronic obstructive pulmonary disease exacerbation. 4. Atrial fibrillation with rapid ventricular response. 5. Pancytopenia. PLAN: According to Dr. Fall the patient has pneumococcal pneumonia with an associated pneumococcal bacteremia. She also had gram-positive coccus in her urine. The plan is if the patient's blood cultures remain negative she will be sent home tomorrow on IV Rocephin. We will follow up on her decreased IgG levels in the clinic when she is outpatient. We have ordered protein shakes to be given with each meal and per her request. She has also been instructed to do exercises when sitting up in a chair and to get out of bed as much as she would like. Dictated by COMPA Adams for Jules Levin MD cc: Jules Levin MD [facility]
--- NOTE | 2018-12-17 16:29 | PROGRESS NOTE ---
DATE: 12/17/2018 ADDENDUM: Note that I discussed with Dr. Levni this mass in the pancreatic head. It has been worked up and has been needle biopsied. She had a PET scan and so it is not a new finding and does not need any more investigation. cc: Amol Sullivan MD
[2018-12-17] MEDS: COLACE PO SCH (22:33)
[2018-12-17] MEDS: COUMADIN PO SCH (22:33)
[2018-12-18] MEDS: ROCEPHIN 1 GM in NS 50 ML IV SCH ×2 (00:05→14:59)
[2018-12-18] MEDS: XOPENEX NEB INH SCH ×2 (03:46→10:29)
[2018-12-18] MEDS: ATROVENT NEB INH SCH ×2 (03:46→10:29)
[2018-12-18] MEDS: SOLU-MEDROL IV SCH ×2 (05:32→15:01)
[2018-12-18] MEDS: SYNTHROID PO SCH ×2 (05:32→06:01)
[2018-12-18] MEDS: CARDIZEM CD PO SCH (05:32)
[2018-12-18] MEDS: HUMULIN R SUBQ SCH ×2 (06:51→11:32)
[2018-12-18 06:56] LABS: INR 2.17; PROTIME 25.7 Seconds (11.0-16.0)
[2018-12-18 06:59] LABS: EOS# 0.04 X1000 (0.0-0.7); EOS% 1.2 % (0.0-10.0); HEMOGLOBIN 8.5 g/dL (12.0-16.0); IMM GRAN% 3.1 % (0.0-0.5); LYMPH# 0.16 X1000 (1.2-3.4); LYMPH% 4.9 % (20.5-51.1); MCH 36.3 PG (27-31); MCHC 32.7 g/dL (33-37); MCV 111.1 FL (81-99); MONO# 0.17 X1000 (0.11-0.59); MONO% 5.2 % (1.7-9.3); MPV 10.2 FL (7.4-10.4); NEUT# 2.78 X1000 (1.4-6.5); NEUT% 85.6 % (42.2-75.2); PLT 110 X1000 (130-400); RBC 2.34 XMIL (4.2-5.4); WBC 3.25 X1000 (4.8-10.8)
[2018-12-18 07:18] LABS: CREATININE 1.5 mg/dL (0.5-0.9); POTASSIUM 4.7 mmol/L (3.5-5.1)
[2018-12-18] MEDS: GLUCOTROL XL PO SCH (08:24)
[2018-12-18] MEDS: LANOXIN PO SCH (08:25)
[2018-12-18] MEDS: FERROUS SULFATE PO SCH (08:25)
[2018-12-18] MEDS: VITAMIN B-12 SL SCH (08:25)
[2018-12-18] MEDS: MUCINEX PO SCH (08:25)
[2018-12-18] MEDS: PRILOSEC PO SCH (08:25)
[2018-12-18] MEDS: ADVAIR 250/50 DISKUS INH SCH (10:30)
[2018-12-18] MEDS ORDERED: LASIX IV ONE ×2 (10:46→11:46)
--- NOTE | 2018-12-18 14:36 | INFECTIOUS DISEASE PROGRESS NO ---
DATE: 12/18/2018 PRESENT ILLNESS: The patient has pneumococcal pneumonia with an associated bacteremia. She also has a urine culture, which is growing a mixed growth, but she does not have a urinary tract infection. It was just a contaminated specimen. MEDICATIONS: The patient is getting Rocephin 1 gram IV every 12 hours. PHYSICAL EXAMINATION: Vital Signs: Temperature is 97.4 degrees, pulse 70, respirations 20, blood pressure 104/57. General: This is an ill-appearing, elderly female. She is in no acute distress, however. HEENT: She has decreased hearing. She can see near objects. She does not have any white coating of her tongue. Neck: She does not have any pain when she moves her head. Thorax: The patient has a Port-A-Cath on the right side. The site is not erythematous or tender. Lungs: Clear to auscultation. Cardiovascular: Heart rate is irregular. Abdomen: Soft and nontender. Extremities: The patient has bilateral leg edema, but no erythema. Neurologic: The patient is alert. She can ambulate. She does not have a tremor. As mentioned above, she does have a decrease in her hearing. LABORATORY DATA: The patient's repeat blood culture is sterile. Urine culture showed a mixed growth. IgA is 179, IgG is 628. Creatinine is 1.5. GFR is 33. CBC shows a white count of 3250, hemoglobin 8.5, and platelet count is 110,000. ASSESSMENT AND PLAN: The patient has a pneumococcal pneumonia with an associated bacteremia. The plan is to continue Rocephin as an outpatient either at home, or if the patient does not have coverage, then have her come to the outpatient clinic for a total of 14 days more. As regarding the patient's urinary tract culture, it is a contaminated specimen because of the mixed growth, and the patient is having an asymptomatic bacteriuria, not a clinical urinary tract infection, and because she is not having any symptoms of a urinary tract infection, she does not require any antibiotic treatment for the asymptomatic bacteriuria. The patient's IgG level of 628 is only marginally decreased and does not require IVIG infusions. I am requesting that the patient come to my office 2 weeks after discharge, which will hopefully be today. COMORBIDITIES: The patient has peritoneal cancer. She also is a diabetic. She has end-stage renal disease and chronic obstructive pulmonary disease. cc: Rudolph Fall MD
--- NOTE | 2018-12-18 15:03 | HEMO/ONC PROGRESS NOTE ---
DATE: 12/18/2018 SUBJECTIVE: The patient is sitting up on the side of her bed. She is well groomed early this morning, about to eat her breakfast, feeling well, feeling stronger than she did yesterday she states. OBJECTIVE: Vital Signs: Temperature 97.4 degrees, pulse rate 96, respiratory rate 18, blood pressure 104/57, O2 saturation 96% on room air. 0/10 pain. PHYSICAL EXAM: General: Elderly appearing female in no acute distress. She is hard of hearing, in good spirits. Respiratory: Lungs are clear to auscultation. Cardiovascular: S1, S2 noted. Regular rate and rhythm. Abdomen: Soft, nontender, nondistended. Extremities: No edema noted. Moves all 4 extremities. Neurological: Alert and oriented x3. No deficits noted. LABORATORIES: WBC 3.25, hemoglobin 8.5, hematocrit 26, platelet count 110,000, creatinine 1.5, calcium 8. ASSESSMENT: 1. Bilateral pulmonary infiltrates. 2. Primary peritoneal carcinomatosis. 3. Chronic obstructive pulmonary disease exacerbation. 4. Atrial fibrillation with rapid ventricular response. 5. Pancytopenia. The patient is recovering well from pneumococcal pneumonia with associated pneumococcal bacteremias and gram-positive cocci in her urine. PLAN: The plan is if she has negative cultures she would possibly be sent home today with antibiotics for another [address] Perdomo will continue to follow her pleural effusions. We will see her back in the office regarding her primary peritoneal carcinomatosis when she is able to return. Continue antibiotics per Dr. Fall recommendation. The patient seems to be getting better and she is eager to go home. Dictated by COMPA Adams for Jules Levin MD Patient seen and examined. As above. Patient is making good progress. She is getting stronger. She walked in the hallway today. Reports that her shortness of breath is improving. From my standpoint, continue current management and discharge home when possible. We will see her in clinic and continue managing her cancer. Jules Levin M.D. [facility]
[2018-12-18 15:50] VITALS: BP 116/52
--- NOTE | 2018-12-18 22:08 | DISCHARGE SUMMARY ---
ADMISSION DATE: 12/13/2018 DISCHARGE DATE: 12/18/2018 ADMISSION DIAGNOSES: 1. Bilateral pneumonia. 2. Chronic obstructive pulmonary disease exacerbation. 3. Stage IV ovarian cancer. 4. History of coronary artery disease. 5. Hypertension. 6. Type 2 diabetes. 7.Hypothyroidism. DISCHARGE DIAGNOSES: 1. Strep pneumoniae bacteremia. 2. Strep pneumoniae pneumonia. 3. Peritoneal carcinomatosis. 4. Atrial fibrillation with rapid ventricular response, rate controlled. 5.Pancytopenia. 6. Bilateral pleural effusions. CONSULTATIONS: Dr. Jules Levin with Hematology/Oncology, Dr. Ish Fall with Infectious Disease, Dr. Arthur Perdomo with Pulmonary. DIAGNOSTIC PROCEDURES/FINDINGS: Chest x-ray on 12/13/2018: Bilateral infiltrates and atelectasis with small pleural effusions. Chest x-ray 12/15/2018: Overall interval improvement. Chest CT 12/16/2018: Increasing size in left basilar pleural effusion, worsening collapse of the left lower lobe, significant infiltrates through the right lung and left upper lobe as well, slight increase in size of a large pancreatic head mass. Cardiomegaly with myocardial thinning. HOSPITAL COURSE: Ms. Meier is an 83-year-old female who was admitted with shortness of breath, productive cough, and malaise. She was found to have bilateral infiltrates on arrival to the ER, so she was admitted. Blood cultures were drawn. She was started on standard community-acquired pneumonia treatment as well as COPD treatment. She has a history of primary peritoneal carcinomatosis and is followed by Dr. Levin. We did consult him for assistance with management of the malignancy. Blood cultures did grow back Strep pneumoniae in 2/2 sets of blood and in the sputum. We consulted Dr. Fall with ID for antibiotic recommendations, and Dr. Perdomo with Pulmonary. Her atrial fibrillation was noted to be slightly tachycardic, so she was treated with digoxin and Cardizem as in her home. Coumadin was continued. Dr. Fall continued the patient on Rocephin. He checked IVIg levels, which were noted to be low, so he did introduce IVIg to the patient. With antibiotics, breathing treatments, and pulmonary toilet, the patient did improve significantly over the next few days. No urgent recommendations were made by Dr. Levin with regard to her cancer. Overall, she is now stable for discharge home, where she will complete IV antibiotics as per Dr. Fall. DISCHARGE MEDICATIONS: 1. Synthroid 50 mcg daily. 2. Prilosec 20 mg p.o. b.i.d. 3. Iron sulfate 325 mg p.o. with breakfast. 4. Coumadin 2 mg daily. 5. Colchicine 0.6 mg daily. 6. Prozac 10 mg daily. 7. Colace 200 mg at bedtime. 8. Cardizem 240 mg p.o. daily. 9. Glipizide 5 mg daily. 10.Lanoxin 125 mcg daily 11.Acetaminophen as needed. 12.Vitamin B12 sublingual 2500 mcg daily. 13.Prednisone 20 mg daily for 2 days, then 10 mg daily for 2 days, then 5 mg for 2 days, then stop. DISCHARGE DIET: Heart-healthy diabetic. DISPOSITION AND OTHER DISCHARGE INSTRUCTIONS: The patient is discharged home with home health. She is to follow up with Dr. Levin, Dr. Perdomo, Dr. Fall, and her PCP Dr. Perdue as directed. She is to continue all her medications as directed. She is to return to the ER or call 911 for worsening complaints or concerns. All questions were answered. Discharge time: Greater than 35 minutes. Dictated by COMPA Crawford for Valdo Albrecht MD cc: COMPA Crawford MD Naveen T. Lobo, MD Mamoun I. Najjar, MD Leroy F. Harris, MD Samuel Gillespie, MD
== END 2018-12-18 16:43 | disposition home health service (06) | DRG 190 ==
LOC: ED 13:39 → SUATTDRO 17:40 → 4N 17:40
PROVIDERS: ATTEND Internal Medicine
CPT/HCPCS: 71010; 71020; 71045; 71046; 71250; 80048; 80053; 81001; 82533; 82550; 82607; 82746; 82784; 82948; 83036; 83605; 83735; 83880; 84439; 84443; 84484; 85025; 85610; 85730; 87040; 87070; 87077; 87088; 87186; 87205; 93005; 94640; 94760; 94761; 94799; 96365; 96368; 96375; 97110; 97162; 97530; 99285; A9270; J0456; J0696; J1160; J1940; J2020; J2920; J3370; J7030; J7040; XXXXX